=== PATIENT | male | born 1990 | race Caucasian/White ===

== ENCOUNTER → 2021-01-24 14:57 | Outpatient (CLI) | payer SELFPAY | PROVIDERS: Visit Provider Nurse Practitioner | DX: Z20.822 Contact with and (suspected) exposure to COVID-19 (principal); U07.1 COVID-19 | CPT/HCPCS: C9803; U0003; U0005 ==

== ENCOUNTER 2022-01-19 18:23 | Emergency (ER) | payer BC, SELFPAY ==
[2022-01-19 18:40] VITALS: BP 151/87; PULSE 62; RESP 17; TEMP 37.1; O2SAT 99; BMI 32.9
[2022-01-19 19:13] VITALS: BP 151/87; PULSE 62; RESP 17; TEMP 37.1; O2SAT 99
--- NOTE | 2022-01-19 19:33 | EXP.UTC ---
Discharge Plan Disposition Patient Disposition: Home, Self-Care Condition: Good Prescriptions Prescriptions: New ondansetron 4 mg Tablet,Disintegrating 4 mg PO Q8H PRN (Reason: Nausea) Qty: 20 0RF Referrals Follow up/Referrals: Provider,Referral, MD [Primary Care Provider] - See instructions Activity Restrictions/Add. Instructions Additional Instructions/Restrictions: *Monitor Temp, Over the counter Motrin or Tylenol as directed/as needed Tylenol every 4 hours and Motrin every 6 hours (as long as your family doctor has told you that you can take it) for fever or pain. and straight to ER if unable to lower temp less than 101.0 after medication given *Warm salt water gargles may help to soothe the throat *Throat Lozenges? *Warm fluids like tea with honey may help to soothe the throat? *Sleep elevated *Humidifier/Vaporizer Follow up IMMEDIATELY for new or worsening symptoms or no Noticeable improvement over the next 48-72 hours. 911 for difficulty breathing or swallowing You were tested for today for COVID19 your test result should be back in the next 24-48 hours, you may check your results on the [facility] My Health Portal Make sure to take your Vitamins Vit. C Vit D and Zinc if you can take them Clinical Impressions Clinical Impression: Viral syndrome, Exposure to COVID-19 virus Stand Alone Forms Stand Alone Forms: Work/School Release Instructions Patient Instructions: Coronavirus Disease 2019, Preventing the Spread of Coronavirus Discharge Instructions, DI for Viral Syndrome Discharge ED Provider: Mary Storey [facility] [place] General Stated complaint: stomach ache, cough, body aches, covid test Mode of Arrival: Ambulatory Source of Information: Patient Limitations: No Limitations Time Seen by Provider: 01/19/22 19:33 Description of Symptoms (Recalled from Triage Doc. by RN): PATIENT C/O RUNNY NOSE, BODY ACHES, FATIGUE, NAUSEA, AND LOSS OF TASTE/SMELL. REQUESTING COVID TEST HEENT Symptoms (Recalled from RN notes): Yes Resp Symptoms (Recalled from RN notes): No Skin Symptoms (Recalled from RN notes): No MS Symptoms (Recalled from RN notes): No Functional Status (Recalled from RN notes): WNL History of Present Illness Provider Complaint: Patient states that he was recently around his brother that has tested positive for COVID States that he has been having Nausea, upset stomach, runny nose body aches and loss of taste and smell so he came in to get tested for COVID Related Data Previous Rx's Medication Instructions Recorded ondansetron 4 mg disintegrating 4 mg PO Q8H PRN Nausea #20 tabs 01/19/22 tablet Allergies Allergy/AdvReac Type Severity Reaction Status Date / Time No Known Allergies Allergy Verified 01/19/22 18:54 Worker's Comp Is this a Worker's Comp case?: No PFSH [facility] Medical History (Updated 01/19/22 @ 19:38 by Mary Storey APRN) Hypertension Surgical History (Updated 01/19/22 @ 18:53 by Marina Carreon, JANE) History of oral surgery Social History (Updated 01/19/22 @ 18:54 by Marina Carreon, RN) Smoking Status: Current every day smoker alcohol intake: never current occupational status: other Travel in the last 8 weeks: None ROS Obtained: Yes All systems reviewed & no additional complaints except as documented and Yes Systems reviewed as appropriate & no additional complaints except as documented Constitutional Constitutional: Reports system reviewed and no additional complaints, except as documented, Reports as per HPI, Reports body ache and Reports chills ENT Ears, Nose, Mouth, and Throat: Reports system reviewed and no additional complaints, except as documented, Reports as per HPI, Reports nasal congestion, Reports nasal discharge and Reports other (loss of taste and smell) Cardiovascular Cardiovascular: Reports system reviewed and no additional complaints, except as documented and Reports as per HPI Respiratory Respiratory: Reports
== END 2022-01-19 19:50 | disposition home or self-care (01) ==
PROVIDERS: Emergency Provider Nurse Practitioner
DX: B34.9 Viral infection, unspecified (principal); R10.9 Unspecified abdominal pain; R05.9 Cough, unspecified; M79.10 Myalgia, unspecified site; R09.81 Nasal congestion; R53.83 Other fatigue; R11.0 Nausea; R43.8 Other disturbances of smell and taste; F17.210 Nicotine dependence, cigarettes, uncomplicated; Z20.822 Contact with and (suspected) exposure to COVID-19
CPT/HCPCS: 99212; C9803; G0463; U0003; U0005

== ENCOUNTER → 2022-05-19 14:43 | Outpatient (CLI) | payer BC, SELFPAY ==
--- NOTE | 2022-05-19 14:43 | MR_ITS ---
FINAL REPORT TECHNIQUE: Multiplanar and multisequence imaging of the shoulder was obtained without contrast. CLINICAL HISTORY: shoulder pain FINDINGS: Bones/Joint: Bone marrow signal intensity is normal. There is no fracture, edema, or pathologic marrow replacement. The AC joint is intact. Rotator Cuff: There is no full thickness rotator cuff tear. There is no fatty atrophy of the rotator cuff musculature. Labrum: The biceps labral complex is intact. There is a tear of the posterior inferior labrum with a very small posterior paralabral cyst. The remainder of the labrum is intact. The glenohumeral ligament is intact. Other: The more distal biceps tendon is located within the bicipital groove. There is no joint effusion. Remaining soft tissues are within normal limits. IMPRESSION: Posterior inferior labral tear with a very small cyst. Reviewed, Interpreted and Dictated by Kayy Armas MD Transcribed by Lizzette Workman Authenticated and . [facility]
== END ==
LOC: RAD 14:43
PROVIDERS: PCP Nurse Practitioner Family; Visit Provider Orthopaedic Surgery
DX: M25.512 Pain in left shoulder (principal); M75.102 Unspecified rotator cuff tear or rupture of left shoulder, not specified as traumatic
CPT/HCPCS: 73221

== ENCOUNTER → 2022-12-03 07:18 | Outpatient (CLI) | payer BC, SELFPAY | PROVIDERS: PCP Nurse Practitioner Family; Visit Provider Nurse Practitioner Family | DX: R55 Syncope and collapse (principal); R42 Dizziness and giddiness; R00.1 Bradycardia, unspecified | CPT/HCPCS: 93270 ==

== ENCOUNTER → 2022-12-10 08:26 | Outpatient (CLI) | payer BC, SELFPAY ==
--- NOTE | 2022-12-10 08:28 | CA_ITS ---
FINAL REPORT TECHNIQUE: Color Doppler, duplex Doppler and valdes scale sonography of the bilateral neck vasculature was performed. Velocities were measured in the carotid arteries. Stenosis evaluation based on velocity criteria. CLINICAL HISTORY: dizziness, syncope COMPARISON: None FINDINGS: The peak systolic velocity of the right common carotid artery is 160 cm/sec and internal carotid artery 120 cm/sec. The diastolic velocity in the internal carotid artery is 40 cm/sec. The ICA/CCA ratio is 0.8. Visually, no significant plaque is seen. These findings are consistent with less than 50% stenosis. The external carotid artery is patent. The right vertebral artery is patent with antegrade flow. The peak systolic velocity of the left common carotid artery is 143 cm/sec and internal carotid artery 125 cm/sec. The diastolic velocity in the internal carotid artery is 40 cm/sec. The ICA/CCA ratio is 0.9. Visually, no significant plaque is seen. These findings are consistent with less than 50% stenosis. The external carotid artery is patent. The left vertebral artery is patent with antegrade flow. IMPRESSION: No evidence of significant carotid stenosis. Bilateral patent vertebral arteries. If indicated, CTA or MRA could further evaluate. Reviewed, Interpreted and Dictated by Tray Abdul III, MD Transcribed by Denise Colón Authenticated and . [facility]
--- NOTE | 2022-12-10 08:28 | CA_ITS ---
APPROVED REPORT EXAM: Comprehensive 2D, Doppler, and color-flow Echocardiogram Warp Spooler: Shama Berrios RVT Ht: 6 ft 1 in Wt: 243lbs BSA: 2.34 BP: 134/77 mmHg Indications: HTN,BRADYCARDIA,SYNCOPE,HTN 2D Dimensions LVOT 2.31 cm (M/F) 1.5-2.5 LA Volume 48.10 mL LA Volume Index 20.56 mL/m2 (M/F) 16-34 M-Mode Dimensions RVDd 2.81 cm (0.9-2.6) LA Diam 4.06 cm (1.9-4.0) LVDd 5.02 cm (3.5-5.7) Ao Diam 2.89 cm (2.0-3.7) LVDs 3.50 cm (3.5-5.7) IVSd 0.84 cm (0.6-1.1) PWd 0.68 cm (0.6-1.1) EF (Teich) 57.30% FS 30.30% EDV (Teich) 119.30 mL TAPSE 2.90 (<1.7) ESV (Teich) 50.90 mL LV Diastology E Decel Time 240.00 (160-240 msec) E/A Ratio 1.0 MED E' 10.60 (< 7 cm/sec) E'/MED E' Ratio 5.58 (>14) LAT E' 9.20 (<10 cm/sec) E/LAT E' Ratio 6.42 (>14) Aortic Valve AO Peak GR. 4.40 mmHg Mitral Valve MV E Max Max. 59.00 (40-130 cm/s) MV A Velocity 57.00 (40-130 cm/s) E/A Ratio 1.03 MV Decel. Time 240.00 (160-240 ms) MV PHT 70.00 ms Pulmonary Valve PV Peak Velocity 95.00 (50-150 cm/s) Tricuspid Valve TR P. Velocity 108.00 cm/s RAP Estimate 10.00 mmHg RVSP 14.70 mmHg Left Ventricle The left ventricle is normal size. The left ventricular systolic function is normal. The left ventricular ejection fraction is within the normal range. There is normal left ventricular wall thickness. There is normal LV segmental wall motion. The left ventricular diastolic function is normal. LVEF is 60%. Right Ventricle Right ventricle is moderately dilated. The right ventricular systolic function is normal. TAPSE 2.1 cm. Atria The left atrium size is normal. The right atrium size mildly dilated. There is no Doppler evidence of interatrial shunt. Aortic Valve The aortic valve opens well. There is no aortic valvular stenosis. Trace aortic regurgitation. Mitral Valve The mitral valve is normal in structure. No evidence of mitral valve stenosis. Trace mitral regurgitation. Tricuspid Valve The tricuspid valve leaflets are thin and pliable. Trace tricuspid regurgitation. RVSP is 10-15 mmHg. Pulmonic Valve The pulmonary valve is grossly normal in structure. Trace pulmonic regurgitation. Great Vessels The aortic root is normal in size. IVC is normal in size and collapses >50% with inspiration. Pericardium There is no pericardial effusion. Other Information Study Quality: Adequate Conclusion Normal biventricular systolic function. Moderately dilated RV. No significant valvular disease. Electronically signed by : Annabella Downs, 12/11/2022 16:01:58
--- NOTE | 2022-12-10 10:35 | CA_ITS ---
APPROVED REPORT Exam: Exercise Treadmill Technologist: Josiane Lopez, Ht: 6 ft 0 in Wt: 243 lbs BSA: 2.31 m2 HR: 63 bpm BP: 157/91 mmHg Rhythm: NSR Stress Test Details Test: Dusty HR Resting HR: 65 bpm Max Heart Rate (APMHR): 189 bpm Max HR Achieved: 184 bpm Target HR (85% APMHR): 161 bpm % of APMHR: 97 Recovery HR: 99 bpm HR response to stress: Normal HR response to stress BP Resting BP: 163.0/93.0 mmHg Max BP: 212.0/84.0 mmHg Recovery BP: 143.0/81.0 mmHg BP response to stress: Abnormal hypertensive response to stress. ECG Resting ECG: NSR, early repolarization pattern Stress EC mm upsloping ST depression Arrhythmia: None Recovery ECG: Return to baseline within 3 minutes of recovery Recovery Arrhythmia: None Clinical Exercise duration: 10:56 min Highest Stage Achieved: IV Exercise capacity: 12.8 METs Overall Exercise Capacity for Age: Good Stress ECG Conclusion The patient was able to exercise for a total of 10:56 on Dusty Protocol. He achieved 12.8 METS. He has good exercise capacity compared to age and sex matched peers. He has normal HR, but exaggerated BP, response to exercise. Max HR: 180 % of PM: 95% Max BP: 212/84 METs: 12.8 Test stopped due to: SOA, Fatigue Symptoms: No CP Arrhythmias/Ectopy: None ST-T Changes: [address] depression Conclusion: Good exercise capacity. Exaggerated BP response to exercise. ECG stress test suggestive of possible ischemia. GXT only (no imaging) Test Summary REST . . . . . . . Sitting REST . . . . . . . Standing REST 03:57 0.0 0.0 65 . 163/ 93 . . Stage 1 01:00 10.0 1.7 92 . . . . Stage 1 02:00 10.0 1.7 96 . . . . Stage 1 03:00 10.0 1.7 103 . 178/ 90 . . Stage 2 01:00 12.0 2.5 112 . . . . Stage 2 02:00 12.0 2.5 119 . . . . Stage 2 03:00 12.0 2.5 124 . 208/ 90 . . Stage 3 01:00 14.0 3.4 133 . . . . Stage 3 02:00 14.0 3.4 144 . . . . Stage 3 03:00 14.0 3.4 153 . 212/ 84 . . Stage 4 01:00 16.0 4.2 181 . . . . Stage 4 01:56 16.0 4.2 180 . . . Stop exercise at 10:56 RECOVERY 01:00 0.0 0.0 136 . . . . RECOVERY 02:00 0.0 0.0 107 . . . . RECOVERY 03:00 0.0 0.0 92 . 185/ 87 . . RECOVERY 04:00 0.0 0.0 93 . 185/ 87 . . RECOVERY 05:00 0.0 0.0 96 . 154/ 83 . . RECOVERY 05:24 0.0 0.0 92 . 143/ 81 . . Electronically signed by : Annabella Downs, 12/13/2022 19:24:20
== END ==
LOC: RT 08:26
PROVIDERS: PCP Nurse Practitioner Family; Visit Provider Nurse Practitioner Family
DX: R00.1 Bradycardia, unspecified (principal); R42 Dizziness and giddiness; R55 Syncope and collapse; R09.89 Other specified symptoms and signs involving the circulatory and respiratory systems
CPT/HCPCS: 93017; 93306; 93880

== ENCOUNTER 2023-01-21 08:36 | Outpatient (CLI) | payer BC, SELFPAY ==
[2023-01-21] VITALS (8 sets, daily range): BP systolic 123–159; BP diastolic 55–97; PULSE 51–76; RESP 16–18; TEMP 36.3–36.7; O2SAT 95–100; BMI 32.1
[2023-01-21 09:39] LABS: Basophils # 0.1 K/mm3 (0-0.2); Basophils % 0.7 % (0.1-2.0); Eosinophils # 0.3 K/mm3 (0.0-0.4); Eosinophils % 2.9 % (0.1-12.0); Hematocrit 54.2 % (42.0-52.0); Hemoglobin 17.3 g/dL (14.1-18.0); Lymphocytes # 1.9 K/mm3 (0.7-4.5); Lymphocytes % 21.3 % (10-50); Mean Corpuscular HGB Conc 31.9 g/dL (31.8-35.4); Mean Corpuscular Hemoglobin 30.3 pg (27.0-31.2); Mean Corpuscular Volume 95.1 fl (80-94); Mean Platelet Volume 7.9 fl (7.4-10.4); Monocytes # 0.4 K/mm3 (0.1-1.0); Monocytes % 4.8 % (1.7-9.3); Neutrophils # 6.3 K/mm3 (1.8-7.8); Neutrophils % 70.3 % (37.0-80.0); Platelet Count 227 K/mm3 (142-424); Red Cell Distribution Width 13.3 % (11.5-17.5); White Blood Count 8.9 K/mm3 (4.8-10.8)
[2023-01-21 09:56] LABS: Anion Gap 12.7 mEq/L (5-15); Blood Urea Nitrogen 14 mg/dl (9-20); Calcium 9.6 mg/dl (8.4-10.2); Carbon Dioxide 29 mmol/L (22.0-30.0); Chloride 105 mmol/L (98-107); Creatinine Clearance Estimated 161 mL/min (50-200); Estimated Glomerular Filt Rate 87 ml/min (>60); GFR (African American) 105 ML/MIN (>60); Glucose 98 mg/dl (74-100); Potassium 4.7 mmoL/L (3.5-5.1); Sodium 142 mmol/L (136-145)
--- NOTE | 2023-01-21 10:47 | PC.NURSE ---
1045- pt arrived to post op at this time. pt stable and vss. will continue to monitor for one hour s/p cta.
== END 2023-01-21 11:32 | disposition home or self-care (01) ==
LOC: RAD 08:36
PROVIDERS: PCP Nurse Practitioner Family; Visit Provider Nurse Practitioner
DX: R42 Dizziness and giddiness (principal); R55 Syncope and collapse; R94.39 Abnormal result of other cardiovascular function study; Z82.49 Family history of ischemic heart disease and other diseases of the circulatory system
CPT/HCPCS: 75574; 80048; 85025; Q9967

== ENCOUNTER 2023-05-28 14:55 | Emergency (ER) | payer BC, SELFPAY ==
[2023-05-28 15:10] VITALS: BP 131/84; PULSE 101; RESP 18; TEMP 37.6; O2SAT 98; BMI 32.4
--- NOTE | 2023-05-28 15:25 | EXP.UTC ---
Discharge Plan Disposition Patient Disposition: Home, Self-Care Condition: Good Prescriptions Prescriptions: New ondansetron 8 mg Tablet,Disintegrating 8 mg PO TID PRN (Reason: Nausea) Qty: 30 0RF Referrals Follow up/Referrals: Milad Obrien APRN [Primary Care Provider] - See instructions Clinical Impressions Clinical Impression: Influenza B Stand Alone Forms Stand Alone Forms: Work/School Release Instructions Patient Instructions: DI for Influenza -- Adult Discharge ED Provider: Marley Adler [facility] [place] General Stated complaint: congestion, vomiting diahria ba flu exposure Mode of Arrival: Ambulatory Source of Information: Patient Limitations: No Limitations Time Seen by Provider: 05/28/23 15:25 Description of Symptoms (Recalled from Triage Doc. by RN): PATIENT C/O BODY ACHES, HEADACHE, NO TASTE/SMELL, RUNNY NOSE, AND VOMITING HEENT Symptoms (Recalled from RN notes): Yes Resp Symptoms (Recalled from RN notes): No Skin Symptoms (Recalled from RN notes): No MS Symptoms (Recalled from RN notes): No Functional Status (Recalled from RN notes): WNL History of Present Illness Provider Complaint: Fever, body aches, chills, vomiting X 1 day. has flu B. Onset (ago): day(s) (1) Relieving factors: none Exacerbating factors: none Associated symptoms: denies other symptoms Treatments prior to arrival: none Related Data Previous Rx's Medication Instructions Recorded ondansetron 8 mg disintegrating 8 mg PO TID PRN Nausea #30 tabs 05/28/23 tablet Allergies Allergy/AdvReac Type Severity Reaction Status Date / Time No Known Allergies Allergy Verified 01/21/23 09:19 Worker's Comp Is this a Worker's Comp case?: No [facility] Disclaimer: The information contained in this section may have been updated after the patient was seen, as this information can be updated by other users. Medical History (Updated 05/28/23 @ 15:31 by PEYTON Elena) Abnormal stress test Hypertension Surgical History History of oral surgery Family History Family history of myocardial infarction Social History (Updated 01/21/23 @ 09:18 by Carmen Slater RN) Smoking Status: Current every day smoker alcohol intake: never current occupational status: employed Travel in the last 8 weeks: None ROS Obtained: Yes All systems reviewed & no additional complaints except as documented and Yes Systems reviewed as appropriate & no additional complaints except as documented Constitutional Constitutional: Reports system reviewed and no additional complaints, except as documented, Reports as per HPI, Reports body ache, Reports chills and Reports fever(s) ENT Ears, Nose, Mouth, and Throat: Reports system reviewed and no additional complaints, except as documented, Reports as per HPI, Reports nasal congestion, Reports nasal discharge and Reports other (loss of taste and smell) Cardiovascular Cardiovascular: Reports system reviewed and no additional complaints, except as documented and Reports as per HPI Respiratory Respiratory: Reports system reviewed and no additional complaints, except as documented, Reports as per HPI and Reports cough Gastrointestinal Gastrointestingal: Reports system reviewed and no additional complaints, except as documented, as per HPI, nausea and vomiting Physical Exam General General appearance: alert and in no apparent distress Head Head exam: atraumatic, normocephalic and normal inspection Eye Eye exam: Present normal appearance, PERRL and EOMI ENT ENT exam: Present normal exam, normal oropharynx, mucous membranes moist, TM's normal bilaterally and normal external ear exam Neck Neck exam: Present normal inspection, full ROM and trachea midline; Absent meningismus or lymphadenopathy Chest Chest inspection: Present normal inspection and symmetric chest wall rise; Absent tenderness Respiratory Respiratory exam: Present normal lung sounds bilaterally; Absent respiratory distress Cardiovascular Cardiovascular exam: Present regular rate and normal rhythm; Absent JVD Abdominal Exam Abdominal exam: Present soft and normal bowel sounds; Absent distention, tenderness or guarding Extremities Exam Extremities exam: Present normal inspection, full ROM and normal capillary refill; Absent calf tenderness Back Exam Back exam: Present normal inspection; Absent tenderness Neurological Exam Neurological exam: Present alert and oriented X3 Psychiatric Psychiatric exam: Present normal affect and normal mood Skin Skin exam: Present warm, dry, intact and normal color Lymphatic Lymphatic Findings: no adenopathy Medical Decision Making Clemente Inquiry Pt receiving controlled substance: No Vital Signs: 05/28/23 15:10 Temperature 99.6 F Temperature Source Oral Pulse Rate [Left Brachial] 101 H Respiratory Rate 18 Blood Pressure [Left Arm] 131/84 Blood Pressure Mean [Left Arm] 99 Blood Pressure Source [Left Arm] Automatic Cuff Blood Pressure Position [Left Arm] Sitting 02 Sat by Pulse Oximetry 98 Oxygen Delivery Method Room Air Lab Data Lab results reviewed: Yes I reviewed the patient's lab results. Orders (Tests/Meds): ORDERS Category Date Time Status Covid-19 Nasal PCR ([facility]) Routine Lab 05/28/23 15:18 Ordered
[2023-05-28 15:27] LABS: UTC Influenza A Antigen Negative (Negative)
[2023-05-28 15:28] LABS: UTC Influenza B Antigen Positive (Negative)
[2023-05-28 15:33] VITALS: BP 131/84; PULSE 101; RESP 18; TEMP 37.6; O2SAT 98
== END 2023-05-28 15:36 | disposition home or self-care (01) ==
PROVIDERS: Emergency Provider Physician Assistant; PCP Nurse Practitioner Family
DX: J10.1 Influenza due to other identified influenza virus with other respiratory manifestations (principal); R11.2 Nausea with vomiting, unspecified; R50.9 Fever, unspecified; R09.81 Nasal congestion; R05.9 Cough, unspecified; F17.210 Nicotine dependence, cigarettes, uncomplicated
CPT/HCPCS: 87635; 87804; 99212; 99214; G0463

== ENCOUNTER 2023-11-15 22:34 | Observation (INO) | payer BC, SELFPAY ==
[2023-11-15 22:36] VITALS: BP 177/107; PULSE 74; RESP 20; TEMP 36.8; O2SAT 99; BMI 34.2
--- NOTE | 2023-11-15 22:38 | ED_ITS ---
<Statement entered by Jordon Ragsdale MD - 11/15/23 23:15> I was consulted by the PRANEETH, and we discussed the complexity of the problems being addressed. I approved the treatment and management plan for this patient's care in the emergency department, thus performing a substantive portion of the medical decision making. Jordon Ragsdale MD Discharge Plan Disposition Patient Disposition: Admitted Condition: Good Chief Complaint: Syncope Prescriptions Prescriptions: No Action ondansetron 8 mg Tablet,Disintegrating 8 mg PO TID PRN (Reason: Nausea) Qty: 30 0RF Referrals Follow up/Referrals: Milad Obrien APRN [Primary Care Provider] - See instructions Clinical Impressions Clinical Impression: Syncope Instructions Patient Instructions: DI for Syncope in Adults (Fainting) Discharge ED Provider: Jordon Ragsdale General Adult HPI <PEYTON Joseph - Last Filed: 11/15/23 22:55> General Chief complaint: Syncope Stated complaint: Possible seizure at home Time Seen by Provider: 11/15/23 22:38 History of Present Illness HPI narrative: Patient presents for evaluation of syncope and collapse. Patient was sitting watching a movie with his and his mother and he had an unheralded syncopal event while seated in a chair. There were no provoking factors. He was unconscious for approximately what seemed like 2 minutes according to his mother. There was no tonic-clonic activity jerking or twitching. He came to spontaneously. Patient states that he initially had visual changes like you had low blood sugar . Patient had no postictal period and came to spontaneously. He has not been recently ill. He currently denies chest pain fever chills hemoptysis hematochezia melena nausea vomiting diarrhea headache neck pain. Patient has had a previous episode approximately 6 months ago that was investigated from a cardiac standpoint and no cause was found. Related Data Previous Rx's Medication Instructions Recorded ondansetron 8 mg disintegrating 8 mg PO TID PRN Nausea #30 tabs 05/28/23 tablet Allergies Allergy/AdvReac Type Severity Reaction Status Date / Time No Known Allergies Allergy Verified 01/21/23 09:19 PFS <PEYTON Joseph - Last Filed: 11/15/23 22:55> [facility] Disclaimer: The information contained in this section may have been updated after the patient was seen, as this information can be updated by other users. Medical History (Updated 11/16/23 @ 01:23 by Basil Elaine MD) Abnormal stress test Hypertension Surgical History History of oral surgery Family History Other Family history of myocardial infarction Social History (Updated 01/21/23 @ 09:18 by Carmen Slater, JANE) Smoking Status: Current every day smoker alcohol intake: never current occupational status: employed Travel in the last 8 weeks: None <PEYTON Joseph - Last Filed: 11/15/23 22:55> ROS Obtained: Yes Systems reviewed as appropriate & no additional complaints except as documented Physical Exam <PEYTON Joseph - Last Filed: 11/15/23 22:55> General General appearance: alert and in no apparent distress Head Head exam: atraumatic and normal inspection Eye Eye exam: Present normal appearance, PERRL and EOMI ENT ENT exam: Present normal exam, normal oropharynx and mucous membranes moist Neck Neck exam: Present normal inspection, full ROM, trachea midline, tenderness and other (No carotid bruits) Chest Chest inspection: Present normal inspection and symmetric chest wall rise Respiratory Respiratory exam: Present normal lung sounds bilaterally; Absent respiratory distress or wheezes Cardiovascular Cardiovascular exam: Present regular rate, normal rhythm, normal heart sounds, +S1 and +S2 Abdominal Exam Abdominal exam: Present soft and normal bowel sounds; Absent tenderness, guarding or rebound Extremities Exam Extremities exam: Present normal inspection and full ROM Back Exam Back exam: Present normal inspection and full ROM; Absent tenderness Neurological Exam Neurological exam: Present alert, oriented X3, CN II-XII intact, normal gait and reflexes normal; Absent motor sensory deficit Psychiatric Psychiatric exam: Present normal affect and normal mood Skin Skin exam: Present warm, dry and normal color Medical Decision Making <PEYTON Joseph - Last Filed: 11/15/23 22:55> Medical Records Medical records reviewed: Yes I reviewed the patient's medical records. [place] Inquiry Pt receiving controlled substance: No Vital Signs: 11/15/23 22:36 11/15/23 22:39 11/15/23 23:00 Temperature 98.2 F Temperature Source Oral Pulse Rate 89 63 Pulse Rate [Right Radial] 74 Respiratory Rate 20 16 18 Blood Pressure 122/76 Blood Pressure [Right Arm] 177/107 H Blood Pressure Mean [Right Arm] 130 Blood Pressure Source [Right Arm] Automatic Cuff Blood Pressure Position [Right Arm] Supine 02 Sat by Pulse Oximetry 99 97 96 Oxygen Delivery Method Room Air Room Air Room Air Lab Data Lab results reviewed: Yes I reviewed the patient's lab results. Lab Results 11/15/23 22:47: WBC 9.4, RBC 4.91, Hgb 15.9, Hct 47.4, MCV 96.7 H, MCH 32.5 H, MCHC 33.6, RDW 13.8, Plt Count 229, MPV 8.2, Neut % (Auto) 76.4, Lymph % (Auto) 15.5, [place] % (Auto) 4.6, Eos % (Auto) 2.8, Baso % (Auto) 0.7, Neut # (Auto) 7.2, Lymph # (Auto) 1.5, [place] # (Auto) 0.4, Eos # (Auto) 0.3, Baso # (Auto) 0.1, PT 10.8, INR 0.96, Sodium 141, Potassium 3.9, Chloride 106, Carbon Dioxide 31 H, Anion Gap 7.9, BUN 13, Creatinine 1.20, Estimated Creat Clear 147, Estimated GFR 70, Est GFR ( Amer) 85, Glucose 98, Calcium 9.7, Total Bilirubin 0.7, AST 24, ALT 25, Alkaline Phosphatase 102, Troponin I < 0.01, Total Protein 7.6, Albumin 4.5, Globulin 3.1, Albumin/Globulin Ratio 1.5, TSH 0.60 11/15/23 22:47 11/15/23 22:47 Orders (Tests/Meds): ED MEDICATIONS Discontinued Medications Generic Name Dose Route Start Last Admin Trade Name Freq PRN Reason Stop Dose Admin Lactated Ringer's 1,000 mls @ 999 mls/hr 11/15/23 22:44 11/15/23 23:01 Lactated Ringer's 1000 Ml Bag IV 11/15/23 23:44 999 mls/hr .Q1H1M ONE Administration Iopamidol 175 ml 11/15/23 23:32 11/15/23 23:33 Iopamidol-370 (76%);100ml Bottle IV 11/15/23 23:33 175 ml ONCE ONE Administration Sodium Chloride 50 ml 11/15/23 23:32 11/15/23 23:33 0.9 % Sodium Chloride 50 Ml Vial IV 11/15/23 23:33 50 ml ONCE ONE Administration Sodium Chloride 10 ml 11/15/23 23:32 11/15/23 23:33 Sodium Chloride 0.9% 10ml Syr (Rad Only) IV 11/15/23 23:33 10 ml ONCE ONE Administration ORDERS Category Date Time Status CT abdomen pelvis w con Stat Cat Scan 11/15/23 22:[address] angio head Stat Cat Scan 11/15/23 22:[address] angio neck Stat Cat Scan 11/15/23 22:[address] head/brain wo con Stat Cat Scan 11/15/23 22:45 Completed CBC w/Auto Diff [Complete Blood Count Auto Diff] Stat Lab 11/15/23 22:47 Completed CMP [Comprehensive Metabolic Panel] Stat Lab 11/15/23 22:47 Completed INR [Prothrombin Time INR] Stat Lab 11/15/23 22:47 Completed TSH [Thyroid Stimulating Hormone] Stat Lab 11/15/23 22:47 Completed Trop I [Troponin I] Stat Lab 11/15/23 22:47 Completed Troponin I Q3H Lab 11/16/23 02:00 Ordered Troponin I Q3H Lab 11/16/23 05:00 Ordered Medical Decision Narrative: In summary patient is a 33-year-old male who presents to the emergency department for evaluation of syncope and collapse. Patient is hemodynamically stable upon arrival, febrile. Sickle exam currently is unremarkable and nonfocal with a Glascow coma score 15 and no focal neurologic deficits. Differential diagnosis includes arrhythmia, vasovagal syndrome although it seems unlikely, stroke etc. Initial workup will be conducted with hematologic labs CT scan of the head CTA of the chest CT a of the head and neck. Initial interventions include crystalloid bolus. Initial workup initiated and pending at the time of handoff to Dr. Elaine at 2300 hrs. <Jordon Ragsdale MD - Last Filed: 11/15/23 23:07> Vital Signs: 11/15/23 22:36 11/15/23 22:39 11/15/23 23:00 Temperature 98.2 F Temperature Source Oral Pulse Rate 89 63 Pulse Rate [Right Radial] 74 Respiratory Rate 20 16 18 Blood Pressure 122/76 Blood Pressure [Right Arm] 177/107 H Blood Pressure Mean [Right Arm] 130 Blood Pressure Source [Right Arm] Automatic Cuff Blood Pressure Position [Right Arm] Supine 02 Sat by Pulse Oximetry 99 97 96 Oxygen Delivery Method Room Air Room Air Room Air Lab Data Lab Results 11/15/23 22:47: WBC 9.4, RBC 4.91, Hgb 15.9, Hct 47.4, MCV 96.7 H, MCH 32.5 H, MCHC 33.6, RDW 13.8, Plt Count 229, MPV 8.2, Neut % (Auto) 76.4, Lymph % (Auto) 15.5, [place] % (Auto) 4.6, Eos % (Auto) 2.8, Baso % (Auto) 0.7, Neut # (Auto) 7.2, Lymph # (Auto) 1.5, [place] # (Auto) 0.4, Eos # (Auto) 0.3, Baso # (Auto) 0.1, PT 10.8, INR 0.96, Sodium 141, Potassium 3.9, Chloride 106, Carbon Dioxide 31 H, Anion Gap 7.9, BUN 13, Creatinine 1.20, Estimated Creat Clear 147, Estimated GFR 70, Est GFR ( Amer) 85, Glucose 98, Calcium 9.7, Total Bilirubin 0.7, AST 24, ALT 25, Alkaline Phosphatase 102, Troponin I < 0.01, Total Protein 7.6, Albumin 4.5, Globulin 3.1, Albumin/Globulin Ratio 1.5, TSH 0.60 Orders (Tests/Meds): ED MEDICATIONS Discontinued Medications Generic Name Dose Route Start Last Admin Trade Name Mayurq PRN Reason Stop Dose Admin Lactated Ringer's 1,000 mls @ 999 mls/hr 11/15/23 22:44 11/15/23 23:01 Lactated Ringer's 1000 Ml Bag IV 11/15/23 23:44 999 mls/hr .Q1H1M ONE Administration Iopamidol 175 ml 11/15/23 23:32 11/15/23 23:33 Iopamidol-370 (76%);100ml Bottle IV 11/15/23 23:33 175 ml ONCE ONE Administration Sodium Chloride 50 ml 11/15/23 23:32 11/15/23 23:33 0.9 % Sodium Chloride 50 Ml Vial IV 11/15/23 23:33 50 ml ONCE ONE Administration Sodium Chloride 10 ml 11/15/23 23:32 11/15/23 23:33 Sodium Chloride 0.9% 10ml Syr (Rad Only) IV 11/15/23 23:33 10 ml ONCE ONE Administration ORDERS Category Date Time Status CT abdomen pelvis w con Stat Cat Scan 11/15/23 22:[address] angio head Stat Cat Scan 11/15/23 22:[address] angio neck Stat Cat Scan 11/15/23 22:[address] head/brain wo con Stat Cat Scan 11/15/23 22:45 Completed CBC w/Auto Diff [Complete Blood Count Auto Diff] Stat Lab 11/15/23 22:47 Completed CMP [Comprehensive Metabolic Panel] Stat Lab 11/15/23 22:47 Completed INR [Prothrombin Time INR] Stat Lab 11/15/23 22:47 Completed TSH [Thyroid Stimulating Hormone] Stat Lab 11/15/23 22:47 Completed Trop I [Troponin I] Stat Lab 11/15/23 22:47 Completed Troponin I Q3H Lab 11/16/23 02:00 Ordered Troponin I Q3H Lab 11/16/23 05:00 Ordered ECG Data Tracing #1: Independently interpreted by me rate is 60, rhythm is regular, axis normal, no ST elevation in anatomical contiguous leads, QTc 373. No high degree AV block, no long QT. <Basil Elaine MD - Last Filed: 11/16/23 01:23> Vital Signs: 11/15/23 22:36 11/15/23 22:39 11/15/23 23:00 Temperature 98.2 F Temperature Source Oral Pulse Rate 89 63 Pulse Rate [Right Radial] 74 Respiratory Rate 20 16 18 Blood Pressure 122/76 Blood Pressure [Right Arm] 177/107 H Blood Pressure Mean [Right Arm] 130 Blood Pressure Source [Right Arm] Automatic Cuff Blood Pressure Position [Right Arm] Supine 02 Sat by Pulse Oximetry 99 97 96 Oxygen Delivery Method Room Air Room Air Room Air Lab Data Lab Results 11/15/23 22:47: WBC 9.4, RBC 4.91, Hgb 15.9, Hct 47.4, MCV 96.7 H, MCH 32.5 H, MCHC 33.6, RDW 13.8, Plt Count 229, MPV 8.2, Neut % (Auto) 76.4, Lymph % (Auto) 15.5, [place] % (Auto) 4.6, Eos % (Auto) 2.8, Baso % (Auto) 0.7, Neut # (Auto) 7.2, Lymph # (Auto) 1.5, [place] # (Auto) 0.4, Eos # (Auto) 0.3, Baso # (Auto) 0.1, PT 10.8, INR 0.96, Sodium 141, Potassium 3.9, Chloride 106, Carbon Dioxide 31 H, Anion Gap 7.9, BUN 13, Creatinine 1.20, Estimated Creat Clear 147, Estimated GFR 70, Est GFR ( Amer) 85, Glucose 98, Calcium 9.7, Total Bilirubin 0.7, AST 24, ALT 25, Alkaline Phosphatase 102, Troponin I < 0.01, Total Protein 7.6, Albumin 4.5, Globulin 3.1, Albumin/Globulin Ratio 1.5, TSH 0.60 Orders (Tests/Meds): ED MEDICATIONS Discontinued Medications Generic Name Dose Route Start Last Admin Trade Name Mayurq PRN Reason Stop Dose Admin Lactated Ringer's 1,000 mls @ 999 mls/hr 11/15/23 22:44 11/15/23 23:01 Lactated Ringer's 1000 Ml Bag IV 11/15/23 23:44 999 mls/hr .Q1H1M ONE Administration Iopamidol 175 ml 11/15/23 23:32 11/15/23 23:33 Iopamidol-370 (76%);100ml Bottle IV 11/15/23 23:33 175 ml ONCE ONE Administration Sodium Chloride 50 ml 11/15/23 23:32 11/15/23 23:33 0.9 % Sodium Chloride 50 Ml Vial IV 11/15/23 23:33 50 ml ONCE ONE Administration Sodium Chloride 10 ml 11/15/23 23:32 11/15/23 23:33 Sodium Chloride 0.9% 10ml Syr (Rad Only) IV 11/15/23 23:33 10 ml ONCE ONE Administration ORDERS Category Date Time Status CT abdomen pelvis w con Stat Cat Scan 11/15/23 22:[address] angio head Stat Cat Scan 11/15/23 22:[address] angio neck Stat Cat Scan 11/15/23 22:[address] head/brain wo con Stat Cat Scan 07/08/24 22:45 Completed CBC w/Auto Diff [Complete Blood Count Auto Diff] Stat Lab 11/15/23 22:47 Completed CMP [Comprehensive Metabolic Panel] Stat Lab 11/15/23 22:47 Completed INR [Prothrombin Time INR] Stat Lab 11/15/23 22:47 Completed TSH [Thyroid Stimulating Hormone] Stat Lab 11/15/23 22:47 Completed Trop I [Troponin I] Stat Lab 11/15/23 22:47 Completed Troponin I Q3H Lab 11/16/23 02:00 Ordered Troponin I Q3H Lab 11/16/23 05:00 Ordered Medical Decision Narrative: In summary patient is a 33-year-old male who presents to the emergency department for evaluation of syncope and collapse. Patient is hemodynamically stable upon arrival, febrile. Sickle exam currently is unremarkable and nonfocal with a Glascow coma score 15 and no focal neurologic deficits. Differential diagnosis includes arrhythmia, vasovagal syndrome although it seems unlikely, stroke etc. Initial workup will be conducted with hematologic labs CT scan of the head CTA of the chest CT a of the head and neck. Initial interventions include crystalloid bolus. Initial workup initiated and pending at the time of handoff to Dr. Elaine at 2300 hrs. Elaine: Upon assumption of care patient is stable and resting comfortably. He has not had any additional syncopal episodes in the ER. I agree with the initial workup performed by the primary providers. I reviewed labs which demonstrate no leukocytosis or anemia, PT/INR normal, initial troponin undetectably low at less than 0.01, CMP nonactionable. EKG personally interpreted demonstrates normal sinus rhythm, rate 60, normal axis, normal IL and QTc, no STEMI. No findings of WPW or B[place], no findings of hypertrophy. CT imaging was personally interpreted, I do not appreciate acute intracranial abnormality, no obvious vascular pathology within the head or neck. See radiology read for final interpretations. Patient continues to be stable. He requires admission at this time for unprovoked syncope. Patient is amenable to this plan. I discussed this with the hospitalist including this being patient's second presentation for similar symptoms. He was accepted for admission. Critical Care <PEYTON Joseph - Last Filed: 11/15/23 22:55> Critical Care Time Critical Care Time: No
[2023-11-15 22:39] VITALS: PULSE 89; RESP 16; O2SAT 97
--- NOTE | 2023-11-15 22:44 | CT_ITS ---
PROCEDURE INFORMATION: Exam: CTA Neck With Contrast Exam date and time: 11/15/2023 11:21 PM Age: 33 years old Clinical indication: Syncope and collapse TECHNIQUE: Imaging protocol: Computed tomographic angiography of the neck with contrast. Exam focused on the cervical segments of the vasculature. 3D rendering (Not supervised by radiologist): MIP and/or 3D reconstructed images were created by the technologist. Radiation optimization: All CT scans at this facility use at least one of these dose optimization techniques: automated exposure control; mA and/or kV adjustment per patient size (includes targeted exams where dose is matched to clinical indication); or iterative reconstruction. Contrast material: ISOVUE; Contrast volume: 100 ml; Contrast route: INTRAVENOUS (IV); COMPARISON: CT ANGIO NECK 11/15/2023 11:21 PM FINDINGS: Right common carotid artery: No stenosis. No dissection or occlusion. Right internal carotid artery: No stenosis of the extracranial segment. No dissection or occlusion. Right external carotid artery: No occlusion or stenosis of the origin. Left common carotid artery: No stenosis. No dissection or occlusion. Left internal carotid artery: No stenosis of the extracranial segment. No dissection or occlusion. Left external carotid artery: No occlusion or stenosis of the origin. Right vertebral artery: No stenosis. No dissection or occlusion. Left vertebral artery: No stenosis. No dissection or occlusion. Soft tissues: Normal. No significant soft tissue swelling. Bones/joints: No acute fracture. IMPRESSION: No stenosis or occlusion. REFERENCES: NASCET CRITERIA. The degree of stenosis in the cervical segment of the internal carotid artery is based on NASCET criteria. Normal is no stenosis. Mild is less than 50% stenosis. Moderate is 50-69% stenosis. Severe is 70% to 99% stenosis. Total occlusion is no detectable patent lumen.
--- NOTE | 2023-11-15 22:44 | CT_ITS ---
PROCEDURE INFORMATION: Exam: CTA Head With Contrast, Arteriography Exam date and time: 11/15/2023 11:21 PM Age: 33 years old Clinical indication: Syncope and collapse TECHNIQUE: Imaging protocol: Computed tomographic angiography of the head with contrast. Exam focused on the arteries. 3D rendering (Not supervised by radiologist): MIP and/or 3D reconstructed images were created by the technologist. Radiation optimization: All CT scans at this facility use at least one of these dose optimization techniques: automated exposure control; mA and/or kV adjustment per patient size (includes targeted exams where dose is matched to clinical indication); or iterative reconstruction. Contrast material: ISOVUE; Contrast volume: 100 ml; Contrast route: INTRAVENOUS (IV); COMPARISON: CT HEAD/BRAIN WO CON 11/15/2023 11:19 PM FINDINGS: ANTERIOR CIRCULATION: Right internal carotid artery: Intracranial segment is patent with no significant stenosis. No aneurysm. Right middle cerebral artery: No occlusion or significant stenosis. No aneurysm. Right anterior cerebral artery: No occlusion or significant stenosis. No aneurysm. Left internal carotid artery: Intracranial segment is patent with no significant stenosis. No aneurysm. Left middle cerebral artery: No occlusion or significant stenosis. No aneurysm. Left anterior cerebral artery: No occlusion or significant stenosis. No aneurysm. POSTERIOR CIRCULATION: Right vertebral artery: No occlusion or significant stenosis. No aneurysm. Left vertebral artery: No occlusion or significant stenosis. No aneurysm. Basilar artery: No occlusion or significant stenosis. No aneurysm. Right posterior cerebral artery: No occlusion or significant stenosis. No aneurysm. Left posterior cerebral artery: No occlusion or significant stenosis. No aneurysm. Brain: No definite mass, mass effect, or midline shift. Cerebral ventricles: No ventriculomegaly. Bones/joints: Unremarkable. No acute fracture. Soft tissues: Unremarkable. IMPRESSION: No large vessel stenosis or occlusion.
--- NOTE | 2023-11-15 22:45 | CT_ITS ---
PROCEDURE INFORMATION: Exam: CT Abdomen And Pelvis With Contrast Exam date and time: 11/15/2023 11:25 PM Age: 33 years old Clinical indication: Abdominal pain; Additional info: Syncope and collapse TECHNIQUE: Imaging protocol: Computed tomography of the abdomen and pelvis with contrast. Radiation optimization: All CT scans at this facility use at least one of these dose optimization techniques: automated exposure control; mA and/or kV adjustment per patient size (includes targeted exams where dose is matched to clinical indication); or iterative reconstruction. Contrast material: ISOVUE; Contrast volume: 75 ml; Contrast route: IV; COMPARISON: No relevant prior studies available. FINDINGS: Lungs: There are areas of subpleural reticulation throughout the visualized lungs which are nonspecific. Liver: Normal. Gallbladder and biliary ducts: No acute process. Pancreas: There is fatty replacement of the pancreas. Spleen: Normal. Adrenal glands: The adrenal glands appear normal. Kidneys and ureters: Excreted contrast in the urinary collecting systems from recent CTA studies limits evaluation for small renal calculi. Stomach and bowel: The stomach, small bowel, and colon are well-distended and show no evidence of wall thickening, masses, or obstruction. Appendix: No evidence of appendicitis. Intraperitoneal space: Unremarkable. Vasculature: The abdominal aorta and its major branches appear normal without evidence of aneurysm or stenosis. There are pelvic phleboliths. Lymph nodes: No lymphadenopathy. Urinary bladder: Unremarkable as visualized. Reproductive: No acute process. Bones/joints: The visualized osseous structures of the abdomen and pelvis appear normal for patient age. Soft tissues: There is a small fat containing umbilical hernia. IMPRESSION: No acute inflammatory or obstructive process is identified. Incidental findings are described within the findings section.
--- NOTE | 2023-11-15 22:45 | CT_ITS ---
PROCEDURE INFORMATION: Exam: CT Head Without Contrast Exam date and time: 11/15/2023 11:19 PM Age: 33 years old Clinical indication: Syncope and collapse TECHNIQUE: Imaging protocol: Computed tomography of the head without contrast. Radiation optimization: All CT scans at this facility use at least one of these dose optimization techniques: automated exposure control; mA and/or kV adjustment per patient size (includes targeted exams where dose is matched to clinical indication); or iterative reconstruction. COMPARISON: US CA CAROTID DUPLEX BI 12/10/2022 8:30 AM FINDINGS: Brain: Normal. No hemorrhage. Unremarkable white matter. No mass effect. Cerebral ventricles: No ventriculomegaly. Pituitary gland and sella: Negative Paranasal sinuses: Moderate mucosal thickening inferiorly in the bilateral maxillary sinuses. Moderate partial opacification ethmoid air cells. Mild frontal sinus mucosal thickening. Mastoid air cells: Visualized mastoid air cells are well aerated. Orbital cavities: Negative. Parotid and submandibular glands: Negative Bones: Unremarkable. No acute fracture. Soft tissues: Unremarkable. Vasculature: Negative. IMPRESSION: No evidence for intracranial hemorrhage, mass lesions or acute stroke.
--- NOTE | 2023-11-15 22:49 | ECG_ITS ---
APPROVED REPORT Exam: Resting ECG HR:60 bpm ECG Measurements Heart Rate 60 AXES DC 131 P 33 QRSd 110 QRS 62 QT 373 T 57 QTc 373 Conclusion SINUS RHYTHM POSSIBLE RIGHT VENTRICULAR CONDUCTION DELAY [RSR (QR) IN V1/V2] BORDERLINE ECG Electronically signed by : YVAN HE, 11/17/2023 09:28:07
[2023-11-15 22:58] LABS: Basophils # 0.1 K/mm3 (0-0.2); Basophils % 0.7 % (0.1-2.0); Eosinophils # 0.3 K/mm3 (0.0-0.4); Eosinophils % 2.8 % (0.1-12.0); Hematocrit 47.4 % (42.0-52.0); Hemoglobin 15.9 g/dL (14.1-18.0); Lymphocytes # 1.5 K/mm3 (0.7-4.5); Lymphocytes % 15.5 % (10-50); Mean Corpuscular HGB Conc 33.6 g/dL (31.8-35.4); Mean Corpuscular Hemoglobin 32.5 pg (27.0-31.2); Mean Corpuscular Volume 96.7 fl (80-94); Mean Platelet Volume 8.2 fl (7.4-10.4); Monocytes # 0.4 K/mm3 (0.1-1.0); Monocytes % 4.6 % (1.7-9.3); Neutrophils # 7.2 K/mm3 (1.8-7.8); Neutrophils % 76.4 % (37.0-80.0); Platelet Count 229 K/mm3 (142-424); Red Blood Count 4.91 M/mm3 (4.60-6.20); Red Cell Distribution Width 13.8 % (11.5-17.5); White Blood Count 9.4 K/mm3 (4.8-10.8)
[2023-11-15 23:00] VITALS: BP 122/76; PULSE 63; RESP 18; O2SAT 96
[2023-11-15] MEDS: LACTATED RINGERS 1000ML 1,000 ML 999 ML IV (23:01)
[2023-11-15 23:03] LABS: Chloride 106 mmol/L (98-107)
[2023-11-15 23:04] LABS: Potassium 3.9 mmoL/L (3.5-5.1); Sodium 141 mmol/L (136-145)
[2023-11-15 23:06] LABS: Alanine Aminotransferase 25 U/L (12-78); Alkaline Phosphatase 102 U/L (38-126); Aspartate Amino Transferase 24 U/L (17-59); Bilirubin,Total 0.7 mg/dl (0.2-1.3); Blood Urea Nitrogen 13 mg/dl (9-20); Creatinine Clearance Estimated 147 mL/min (50-200); Estimated Glomerular Filt Rate 70 ml/min (>60); GFR (African American) 85 ML/MIN (>60)
[2023-11-15 23:07] LABS: Albumin Level 4.5 g/dl (3.5-5.0); Albumin/Globulin Ratio 1.5 (1.1-1.8); Anion Gap 7.9 mEq/L (5-15); Calcium 9.7 mg/dl (8.4-10.2); Carbon Dioxide 31 mmol/L (22.0-30.0); Globulin 3.1 g/dL (1.3-3.2); Glucose 98 mg/dl (74-100); Total Protein,Serum 7.6 g/dl (6.3-8.2)
[2023-11-15 23:12] LABS: INR 0.96 (0.9-1.1); Prothrombin Time 10.8 seconds (10.1-12.5)
[2023-11-15 23:20] LABS: Troponin I < 0.01 ng/ml (0.00-0.034)
[2023-11-15 23:30] VITALS: BP 135/77; PULSE 66; RESP 18; O2SAT 97
[2023-11-15] MEDS: 0.9 % SODIUM CHLORIDE 50 ML VIAL IV (23:33)
[2023-11-15] MEDS: IOPAMIDOL-370 (76%);100ML BOTTLE 175 ML IV (23:33)
[2023-11-15] MEDS: SODIUM CHLORIDE 0.9% 10ML SYR (RAD ONLY) 10 ML IV (23:33)
[2023-11-16] VITALS (13 sets, daily range): BP systolic 105–148; BP diastolic 54–89; PULSE 46–67; RESP 14–24; TEMP 36.8–37; O2SAT 93–99; BMI 34.4; BMI 30.9
[2023-11-16 02:20] LABS: Troponin I < 0.01 ng/ml (0.00-0.034)
--- NOTE | 2023-11-16 02:25 | P.HP_ITS ---
History of Present Illness *Admission Date: 11/16/23 *Reason for visit:: Syncope *History of present illness: 33-year-old presents to the ER after second episode of syncope in the last 6 months. Was sitting in his chair, passed out for about 2 minutes, completely unresponsive. No bowel or bladder continence loss. Woke up spontaneously with no memory of the event. Prodrome prior to syncope approximately 5 seconds, no palpitations, felt vision narrow then went black. Similar to last episode. Has had prior cardiovascular evaluation syncope including a coronary CTA which was normal. Echo with Normal biventricular systolic function. Moderately dilated RV. No significant valvular disease. Reportedly had a Holter monitor however records are not available in our reporting system. Currently asymptomatic [facility] Disclaimer: The information contained in this section may have been updated after the patient was seen, as this information can be updated by other users. Medical History (Updated 11/16/23 @ 02:30 by Mable Devi MD) Abnormal stress test Hypertension Surgical History History of oral surgery Family History Other Family history of myocardial infarction Social History (Updated 01/21/23 @ 09:18 by Carmen Slater RN) Smoking Status: Current every day smoker alcohol intake: never current occupational status: employed Travel in the last 8 weeks: None Review of Systems Review of Systems Review of systems:: pertinent systems reviewed and negative unless documented below Meds Home Medications and Allergies Home Medications Medication Instructions Recorded Confirmed Type ondansetron 8 mg disintegrating 8 mg PO TID PRN Nausea #30 tabs 05/28/23 Rx tablet New Prescriptions to Start Prescriptions: Allergies Allergy/AdvReac Type Severity Reaction Status Date / Time No Known Allergies Allergy Verified 01/21/23 09:19 Exam Data for Last 24 hours Vital signs and Labs for Last 24 Hours: Temp Pulse Resp BP Pulse Ox O2 Del Method 98.2 F 63 18 122/76 96 Room Air 11/15/23 22:36 11/15/23 23:00 11/15/23 23:00 11/15/23 23:00 11/15/23 23:00 11/15/23 23:00 Laboratory Results - last 24 hr 11/15/23 22:47: WBC 9.4, RBC 4.91, Hgb 15.9, Hct 47.4, MCV 96.7 H, MCH 32.5 H, MCHC 33.6, RDW 13.8, Plt Count 229, MPV 8.2, Neut % (Auto) 76.4, Lymph % (Auto) 15.5, [place] % (Auto) 4.6, Eos % (Auto) 2.8, Baso % (Auto) 0.7, Neut # (Auto) 7.2, Lymph # (Auto) 1.5, [place] # (Auto) 0.4, Eos # (Auto) 0.3, Baso # (Auto) 0.1, PT 10.8, INR 0.96, Sodium 141, Potassium 3.9, Chloride 106, Carbon Dioxide 31 H, Anion Gap 7.9, BUN 13, Creatinine 1.20, Estimated Creat Clear 147, Estimated GFR 70, Est GFR ( Amer) 85, Glucose 98, Calcium 9.7, Total Bilirubin 0.7, AST 24, ALT 25, Alkaline Phosphatase 102, Troponin I < 0.01, Total Protein 7.6, Albumin 4.5, Globulin 3.1, Albumin/Globulin Ratio 1.5, TSH 0.60 11/16/23 01:51: Troponin I < 0.01 I & O for Last 24 hours: Intake & Output 11/13/23 11/14/23 11/15/23 11/16/23 23:59 23:59 23:59 23:59 Weight 117.934 kg Constitutional Constitutional: no acute distress *Routine HEENT Exam Head: Present normocephalic Eye: Present EOMI and PERRL ENT: Present mucous membranes moist *Routine Neck Exam Neck: Present supple; Absent lymphadenopathy *Routine Respiratory Exam Respiratory: Present CTA bilaterally *Routine Cardiovascular Exam Cardiovascular: Present RRR *Routine Abdominal Exam Abdominal: Present soft and normoactive bowel sounds; Absent tenderness *Routine Rectal Exam Rectal:: deferred *Routine Genitalia Exam Genitalia:: deferred *Routine Extremities Exam Extremities: Absent cyanosis, clubbing or edema *Routine Skin Exam Skin: Present warm; Absent rash *Routine Neurological Exam Neurological: Present alert and oriented X3 Assessment and Plan *Assessment and plan (1) Syncope: Status: Acute Qualifiers: Encounter type: subsequent encounter Category: Medical Code(s): R55 - Syncope and collapse Plan 33-year-old male presenting with unexplained syncope. Prior cardiovascular evaluation unremarkable thus far, however previously worn Holter monitor results unavailable. Echo does show RV dilation, will consult cardiology for further evaluation Syncope -Cardiology consult -Telemetry -Echo -Potential ILR for unexplained syncope if previous Holter monitor results unremarkable RV dilation -Repeat echo -Potential CMR
--- NOTE | 2023-11-16 02:33 | CA_ITS ---
APPROVED REPORT EXAM: Comprehensive 2D, Doppler, and color-flow Echocardiogram Licensed Real Estate Broker: FLIP Kinsey, RVS Ht: 6 ft 1 in Wt: 260lbs BSA: 2.41 BP: 122/76 mmHg Rhythm: Bradycardia Indications: Bradycardia, Syncope, Smoker,HTN 2D Dimensions Left Atrium 3.52 cm M: 3.0 - 4.0 LA Volume 66.50 mL LA Volume Index [id number] mL/m2 (M/F) 16-34 M-Mode Dimensions RVDd 2.98 cm (0.9-2.6) LA Diam 4.68 cm (1.9-4.0) LVDd 5.51 cm (3.5-5.7) LVDs 3.46 cm (3.5-5.7) IVSd 0.93 cm (0.6-1.1) PWd 0.97 cm (0.6-1.1) EF (Teich) 66.60% EPSs 0.24 cm FS 37.20% EDV (Teich) 148.00 mL TAPSE 2.38 (<1.7) ESV (Teich) 49.50 mL LV Diastology E Decel Time 180 (160-240 msec) E/A Ratio 1.50 MED A' 10.60 cm/s LAT A' 8.90 cm/s Aortic Valve PHI Index 1.16 cm2/m2 AoV Peak Max. 121.0 (50-130 cm/s) AO Peak GR. 5.80 mmHg AO Mean GR. 2.90 (<5 mmHg) AO VTI 27.3 (18-25 cm) PHI (VTI) 2.86 (2.5-4.5 cm2) Mitral Valve MV A Velocity 40.0 (40-130 cm/s) E/A Ratio 1.50 Pulmonary Valve PV Peak Velocity 107.0 (50-150 cm/s) Tricuspid Valve TR P. Velocity 167.00 cm/s RAP Estimate 10.00 mmHg RVSP 21.10 mmHg Left Ventricle The left ventricle is normal size. The left ventricular systolic function is normal. The left ventricular ejection fraction is within the normal range. LVEF is 55%. There is normal left ventricular wall thickness. There is normal LV segmental wall motion. The left ventricular diastolic function is normal. Right Ventricle Right ventricle is mildly to moderately dilated. The right ventricular systolic function is normal. Atria The left atrium size is normal. The right atrium is mildly dilated. There is no Doppler evidence of interatrial shunt. Aortic Valve The aortic valve opens well. There is no aortic valvular stenosis. No aortic regurgitation is present. Mitral Valve The mitral valve is normal in structure. No evidence of mitral valve stenosis. There is no mitral valve regurgitation noted. Tricuspid Valve The tricuspid valve leaflets are thin and pliable. Trace tricuspid regurgitation. There is insufficient TR jet to estimate RVSP. Pulmonic Valve The pulmonary valve is normal in structure. Trace pulmonic regurgitation. Great Vessels The aortic root is normal in size. The ascending aorta is normal in size. IVC is normal in size and collapses >50% with inspiration. Pericardium There is no pericardial effusion. Other Information Study Quality: Fair Conclusion Normal biventricular systolic function. Mild to moderate RV dilation. Mild RA dilation. No significant valvular stenosis or regurgitation. Electronically signed by : Annabella Downs MD 11/17/2023 22:57:51
--- NOTE | 2023-11-16 02:56 | PC.NURSE ---
Rounded on patient, patient is resting in bed voiced no needs at this time.
--- NOTE | 2023-11-16 03:00 | PC.NURSE ---
Patient placed in hospital bed for comfort.
--- NOTE | 2023-11-16 03:46 | PC.NURSE ---
back in patient's room at this time
[2023-11-16 05:25] LABS: Basophils # 0.1 K/mm3 (0-0.2); Basophils % 0.8 % (0.1-2.0); Eosinophils # 0.4 K/mm3 (0.0-0.4); Eosinophils % 4.1 % (0.1-12.0); Hematocrit 43.5 % (42.0-52.0); Hemoglobin 14.7 g/dL (14.1-18.0); Lymphocytes # 2.6 K/mm3 (0.7-4.5); Mean Corpuscular HGB Conc 33.9 g/dL (31.8-35.4); Mean Corpuscular Hemoglobin 32.7 pg (27.0-31.2); Mean Corpuscular Volume 96.6 fl (80-94); Mean Platelet Volume 8.1 fl (7.4-10.4); Monocytes # 0.4 K/mm3 (0.1-1.0); Neutrophils # 5.4 K/mm3 (1.8-7.8); Neutrophils % 61.2 % (37.0-80.0); Platelet Count 196 K/mm3 (142-424); Red Cell Distribution Width 13.8 % (11.5-17.5); White Blood Count 8.8 K/mm3 (4.8-10.8)
[2023-11-16 05:32] LABS: Alanine Aminotransferase 21 U/L (12-78); Albumin Level 3.8 g/dl (3.5-5.0); Albumin/Globulin Ratio 1.4 (1.1-1.8); Alkaline Phosphatase 96 U/L (38-126); Aspartate Amino Transferase 22 U/L (17-59); Bilirubin,Total 0.6 mg/dl (0.2-1.3); Blood Urea Nitrogen 14 mg/dl (9-20); Calcium 9.3 mg/dl (8.4-10.2); Carbon Dioxide 28 mmol/L (22.0-30.0); Chloride 107 mmol/L (98-107); Creatinine Clearance Estimated 197 mL/min (50-200); Estimated Glomerular Filt Rate 98 ml/min (>60); GFR (African American) 118 ML/MIN (>60); Globulin 2.8 g/dL (1.3-3.2); Glucose 97 mg/dl (74-100); Magnesium 2.2 mg/dl (1.6-2.3); Sodium 138 mmol/L (136-145); Total Protein,Serum 6.6 g/dl (6.3-8.2)
[2023-11-16 05:44] LABS: Troponin I < 0.01 ng/ml (0.00-0.034)
--- NOTE | 2023-11-16 06:15 | PC.NURSE ---
Patient resting in bed at this time; no needs voiced.
--- NOTE | 2023-11-16 07:18 | PC.NURSE ---
Echo u/s has been completed. Pt resting in bed, no new concerns at this time
--- NOTE | 2023-11-16 08:45 | PC.NURSE ---
I s/w steward/stewardess club car on med/surg to ask for them to remind Cardiology of the consult in ER for their boarded pt
--- NOTE | 2023-11-16 10:30 | PC.NURSE ---
Cardiology PA at bedside for consult
--- NOTE | 2023-11-16 10:38 | PC.NURSE ---
cardiology in room
--- NOTE | 2023-11-16 11:59 | PC.NURSE ---
Called Med/Surg floor to check on bed status for this pt, WC states she will ask Charge and will call back.
--- NOTE | 2023-11-16 12:07 | PC.NURSE ---
Giving report to Joy LARA on Med/Surg
--- NOTE | 2023-11-16 12:07 | PC.NURSE ---
RECEIVED REPORT FROM KARL LARA
--- NOTE | 2023-11-16 13:18 | P.CONCA_ITS ---
History of Present Illness History of Present Illness Consult date: 11/16/23 Requesting physician: Mable Devi Chief complaint: syncope History of present illness: 33-year-old white male established patient of our office originally seen for evaluation of syncope approximately 6 months ago. At that time he underwent GXT testing which was abnormal so he had follow-up CCTA which was normal. He also had 2D echo which showed mild RV dilation but otherwise normal function. He had 2-week monitor ordered but apparently was not done due to artifact-details of this are unclear. He has not followed up since that visit. Patient presents to ER for second syncopal episode which was witnessed by family who are here today providing assistance with history. Family was watching TV. Patient was sitting in office chair talking about the show and then within seconds his head was tilted back and he was completely unconscious for several minutes. Family held his head up to assist with airway and checked his vitals which were reportedly normal. He had profuse diaphoresis and they called EMS. After approximately 10 minutes he was returned to baseline and has been asymptomatic since that time. He denies prodrome other than feeling weird prior to episodes. There was no witnessed tremor. No loss of bowel or bladder function, no tongue biting or foaming at the mouth. He admits postictal period for hours following both episodes. No medication use and pt denies drugs/alcohol. Typically he can ambulate without palps, CP, or SOA. Tele since arrival has shown some mild sinus bradycardia in the 40s which has been asymptomatic. He has normal serial Troponin. Other labs unremarkable. [facility] Disclaimer: The information contained in this section may have been updated after the patient was seen, as this information can be updated by other users. Medical History Abnormal stress test Hypertension Surgical History History of oral surgery Family History Other Family history of myocardial infarction Social History Smoking Status: Current every day smoker alcohol intake: never current occupational status: employed Travel in the last 8 weeks: None Review of Systems Constitutional Constitutional: Denies fatigue and Denies weakness Eyes Eyes: Denies loss of vision ENT Ears, Nose, Mouth, and Throat: Denies hearing loss and Denies vertigo *Cardiovascular Cardiovascular: Denies chest pain, Denies dyspnea and Reports syncope *Respiratory Respiratory: Denies cough and Denies dyspnea *Gastrointestinal Gastrointestinal: Denies change in stool character, Denies nausea and Denies vomiting *Genitourinary Genitourinary: Denies difficulty urinating *Musculoskeletal Musculoskeletal: Denies muscle weakness Integumentary/Breasts Skin/Breast: Denies changing lesions *Neurologic Neurologic: Denies loss of vision, Reports syncope, Denies vertigo and Denies weakness Endocrine Endocrine: Denies fatigue Exam Data for Last 24 hours Vital signs and Labs for Last 24 Hours: Temp Pulse Resp BP Pulse Ox O2 Del Method 98.2 F 51 L 18 148/75 H 93 L Room Air 11/16/23 12:15 11/16/23 12:15 11/16/23 12:15 11/16/23 12:15 11/16/23 08:00 11/16/23 12:48 Laboratory Results - last 24 hr 11/15/23 22:47: WBC 9.4, RBC 4.91, Hgb 15.9, Hct 47.4, MCV 96.7 H, MCH 32.5 H, MCHC 33.6, RDW 13.8, Plt Count 229, MPV 8.2, Neut % (Auto) 76.4, Lymph % (Auto) 15.5, [place] % (Auto) 4.6, Eos % (Auto) 2.8, Baso % (Auto) 0.7, Neut # (Auto) 7.2, Lymph # (Auto) 1.5, [place] # (Auto) 0.4, Eos # (Auto) 0.3, Baso # (Auto) 0.1, PT 10.8, INR 0.96, Sodium 141, Potassium 3.9, Chloride 106, Carbon Dioxide 31 H, Anion Gap 7.9, BUN 13, Creatinine 1.20, Estimated Creat Clear 147, Estimated GFR 70, Est GFR ( Amer) 85, Glucose 98, Calcium 9.7, Total Bilirubin 0.7, AST 24, ALT 25, Alkaline Phosphatase 102, Troponin I < 0.01, Total Protein 7.6, Albumin 4.5, Globulin 3.1, Albumin/Globulin Ratio 1.5, TSH 0.60 11/16/23 01:51: Troponin I < 0.01 11/16/23 05:20: WBC 8.8, RBC 4.50 L, Hgb 14.7, Hct 43.5, MCV 96.6 H, MCH 32.7 H, MCHC 33.9, RDW 13.8, Plt Count 196, MPV 8.1, Neut % (Auto) 61.2, Lymph % (Auto) 29.0, [place] % (Auto) 5.0, Eos % (Auto) 4.1, Baso % (Auto) 0.8, Neut # (Auto) 5.4, Lymph # (Auto) 2.6, [place] # (Auto) 0.4, Eos # (Auto) 0.4, Baso # (Auto) 0.1, Sodium 138, Potassium 4.0, Chloride 107, Carbon Dioxide 28, Anion Gap 7.0, BUN 14, Creatinine 0.90 D, Estimated Creat Clear 197, Estimated GFR 98, Est GFR ( Amer) 118 D, Glucose 97, Calcium 9.3, Magnesium 2.2, Total Bilirubin 0.6, AST 22, ALT 21, Alkaline Phosphatase 96, Troponin I < 0.01, Total Protein 6.6, Albumin 3.8 D, Globulin 2.8, Albumin/Globulin Ratio 1.4 I & O for Last 24 hours: Intake & Output 11/13/23 11/14/23 11/15/23 11/16/23 23:59 23:59 23:59 23:59 Output Total 0 / 0 Balance 0 / 0 Weight 260 lb 259 lb 15.858 oz Meds Home Medications and Allergies Home Medications Medication Instructions Recorded Confirmed Type No Known Home Medications 11/16/23 11/16/23 History New Prescriptions to Start Prescriptions: Allergies Allergy/AdvReac Type Severity Reaction Status Date / Time No Known Allergies Allergy Verified 11/16/23 12:34 Assessment and Plan *Assessment and plan (1) Syncope: Status: Acute Qualifiers: Encounter type: subsequent encounter Category: Medical Code(s): R55 - Syncope and collapse Plan Recurrent Syncope - 2 episodes, 6 months apart, both were complete loss of consciousness for several minutes and both occurred while at rest and were followed with hours of fatigue - repeat ECHO (prelim) here shows mild-mod RV dilation which is unchanged from last year. - from CV standpoint his EKG, Tele, and ECHO are not concerning at this time. His occasional mild asymptomatic bradycardia here is noted but not an indication for further inpatient w/u or PPM at this time. - Plan: Place 30 day monitor here, check outpatient cardiac MRI, consider implanted loop recorder if 30 day monitor is negative (pt agreeable if needed). Refer to Neuro for sz w/u. NO DRIVING until further notice. 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
--- NOTE | 2023-11-16 15:27 | EXP.DC.SUM ---
General Admission date:: 11/16/23 Discharge date: 11/16/23 HPI HPI HPI: 33-year-old presents to the ER after second episode of syncope in the last 6 months. Was sitting in his chair, passed out for about 2 minutes, completely unresponsive. No bowel or bladder continence loss. Woke up spontaneously with no memory of the event. Prodrome prior to syncope approximately 5 seconds, no palpitations, felt vision narrow then went black. Similar to last episode. Has had prior cardiovascular evaluation syncope including a coronary CTA which was normal. Echo with Normal biventricular systolic function. Moderately dilated RV. No significant valvular disease. Reportedly had a Holter monitor however records are not available in our reporting system. Currently asymptomatic Hospital Course Hospital Course Hospital Course: Patient presented to hospital complaining of syncopal episode. Patient had full neurocardiogenic workup during hospitalization. Patient's TSH within normal limits. CT brain without acute abnormalities. Echocardiogram showing mild to moderate RV dilatation similar to echocardiogram 1 year ago. No new arrhythmias noted on telemetry monitoring during hospitalization. CTA abdomen/pelvis done during hospitalization without acute inflammation. Patient evaluated by cardiology during hospitalization, with 30-day event monitor, sleep study, and neurology consultations ordered at time of hospital discharge. Also discussion note, patient had similar episode approximately 6 months ago. Patient seen by cardiology at that time with full cardiogenic workup done. Patient will follow-up with send cardiology consulted at time of hospital discharge. Exam Data for Last 24 hours Vital signs and Labs for Last 24 Hours: Temp Pulse Resp BP Pulse Ox O2 Del Method 98.2 F 51 L 18 148/75 H 98 Room Air 11/16/23 12:15 11/16/23 12:15 11/16/23 12:15 11/16/23 12:15 11/16/23 12:00 11/16/23 15:00 Laboratory Results - last 24 hr 11/15/23 22:47: WBC 9.4, RBC 4.91, Hgb 15.9, Hct 47.4, MCV 96.7 H, MCH 32.5 H, MCHC 33.6, RDW 13.8, Plt Count 229, MPV 8.2, Neut % (Auto) 76.4, Lymph % (Auto) 15.5, Richardson % (Auto) 4.6, Eos % (Auto) 2.8, Baso % (Auto) 0.7, Neut # (Auto) 7.2, Lymph # (Auto) 1.5, Richardson # (Auto) 0.4, Eos # (Auto) 0.3, Baso # (Auto) 0.1, PT 10.8, INR 0.96, Sodium 141, Potassium 3.9, Chloride 106, Carbon Dioxide 31 H, Anion Gap 7.9, BUN 13, Creatinine 1.20, Estimated Creat Clear 147, Estimated GFR 70, Est GFR ( Amer) 85, Glucose 98, Calcium 9.7, Total Bilirubin 0.7, AST 24, ALT 25, Alkaline Phosphatase 102, Troponin I < 0.01, Total Protein 7.6, Albumin 4.5, Globulin 3.1, Albumin/Globulin Ratio 1.5, TSH 0.60 11/16/23 01:51: Troponin I < 0.01 11/16/23 05:20: WBC 8.8, RBC 4.50 L, Hgb 14.7, Hct 43.5, MCV 96.6 H, MCH 32.7 H, MCHC 33.9, RDW 13.8, Plt Count 196, MPV 8.1, Neut % (Auto) 61.2, Lymph % (Auto) 29.0, Richardson % (Auto) 5.0, Eos % (Auto) 4.1, Baso % (Auto) 0.8, Neut # (Auto) 5.4, Lymph # (Auto) 2.6, Richardson # (Auto) 0.4, Eos # (Auto) 0.4, Baso # (Auto) 0.1, Sodium 138, Potassium 4.0, Chloride 107, Carbon Dioxide 28, Anion Gap 7.0, BUN 14, Creatinine 0.90 D, Estimated Creat Clear 197, Estimated GFR 98, Est GFR ( Amer) 118 D, Glucose 97, Calcium 9.3, Magnesium 2.2, Total Bilirubin 0.6, AST 22, ALT 21, Alkaline Phosphatase 96, Troponin I < 0.01, Total Protein 6.6, Albumin 3.8 D, Globulin 2.8, Albumin/Globulin Ratio 1.4 I & O for Last 24 hours: Intake & Output 11/13/23 11/14/23 11/15/23 11/16/23 23:59 23:59 23:59 23:59 Output Total 0 / 0 Balance 0 / 0 Weight 117.934 kg 117.93 kg Constitutional Constitutional: no acute distress *Routine HEENT Exam Head: Present normocephalic Eye: Present EOMI ENT: Present mucous membranes moist *Routine Neck Exam Neck: Present supple and full ROM Routine Chest/Breast/Axilla Exam Chest wall: Present tenderness *Routine Cardiovascular Exam Cardiovascular: Present RRR and Normal S1 *Routine Abdominal Exam Abdominal: Present soft and normoactive bowel sounds *Routine Extremities Exam Extremities: Present cyanosis Routine Back/Spine/Pelvis Exam Back/Spine: Present full ROM Results Data Completed and Pending Labs on day of discharge: Labs from last 24 hours 11/16/23 11/16/23 11/15/23 05:20 01:51 22:47 WBC 8.8 9.4 RBC 4.50 L 4.91 Hgb 14.7 15.9 Hct 43.5 47.4 MCV 96.6 H 96.7 H MCH 32.7 H 32.5 H MCHC 33.9 33.6 RDW 13.8 13.8 Plt Count 196 229 MPV 8.1 8.2 Neut % (Auto) 61.2 76.4 Lymph % (Auto) 29.0 15.5 Richardson % (Auto) 5.0 4.6 Eos % (Auto) 4.1 2.8 Baso % (Auto) 0.8 0.7 Neut # (Auto) 5.4 7.2 Lymph # (Auto) 2.6 1.5 Richardson # (Auto) 0.4 0.4 Eos # (Auto) 0.4 0.3 Baso # (Auto) 0.1 0.1 PT 10.8 INR 0.96 Sodium 138 141 Potassium 4.0 3.9 Chloride 107 106 Carbon Dioxide 28 31 H Anion Gap 7.0 7.9 BUN 14 13 Creatinine 0.90 D 1.20 Estimated Creat Clear 197 147 Estimated GFR 98 70 Est GFR ( Amer) 118 D 85 Glucose 97 98 Calcium 9.3 9.7 Magnesium 2.2 Total Bilirubin 0.6 0.7 AST 22 24 ALT 21 25 Alkaline Phosphatase 96 102 Troponin I < 0.01 < 0.01 < 0.01 Total Protein 6.6 7.6 Albumin 3.8 D 4.5 Globulin 2.8 3.1 Albumin/Globulin Ratio 1.4 1.5 TSH 0.60 Imaging and Cardiology TESTING: Additional comments: Echocardiogram 11/16/2023: mild-mod RV dilation which is unchanged from last year. per cardiology Ordering Physician: Naseem Quintanilla Date of Service: 11/15/23 Procedure(s): CT head/brain wo con Accession Number(s): [id number] cc: Milad Obrien APRN; Thomas Mann MD; Naseem Quintanilla~ PROCEDURE INFORMATION: Exam: CT Head Without Contrast Exam date and time: 11/15/2023 11:19 PM Age: 33 years old Clinical indication: Syncope and collapse TECHNIQUE: Imaging protocol: Computed tomography of the head without contrast. Radiation optimization: All CT scans at this facility use at least one of these dose optimization techniques: automated exposure control; mA and/or kV adjustment per patient size (includes targeted exams where dose is matched to clinical indication); or iterative reconstruction. COMPARISON: US CA CAROTID DUPLEX BI 12/10/2022 8:30 AM FINDINGS: Brain: Normal. No hemorrhage. Unremarkable white matter. No mass effect. Cerebral ventricles: No ventriculomegaly. Pituitary gland and sella: Negative Paranasal sinuses: Moderate mucosal thickening inferiorly in the bilateral maxillary sinuses. Moderate partial opacification ethmoid air cells. Mild frontal sinus mucosal thickening. Mastoid air cells: Visualized mastoid air cells are well aerated. Orbital cavities: Negative. Parotid and submandibular glands: Negative Bones: Unremarkable. No acute fracture. Soft tissues: Unremarkable. Vasculature: Negative. IMPRESSION: No evidence for intracranial hemorrhage, mass lesions or acute stroke. Ordering Physician: Naseem Quintanilla Date of Service: 11/15/23 Procedure(s): CT abdomen pelvis w con Accession Number(s): [id number] cc: Milad Obrien APRN; Jorge Luis Canada MD; Naseem Quintanilla~ PROCEDURE INFORMATION: Exam: CT Abdomen And Pelvis With Contrast Exam date and time: 11/15/2023 11:25 PM Age: 33 years old Clinical indication: Abdominal pain; Additional info: Syncope and collapse TECHNIQUE: Imaging protocol: Computed tomography of the abdomen and pelvis with contrast. Radiation optimization: All CT scans at this facility use at least one of these dose optimization techniques: automated exposure control; mA and/or kV adjustment per patient size (includes targeted exams where dose is matched to clinical indication); or iterative reconstruction. Contrast material: ISOVUE; Contrast volume: 75 ml; Contrast route: IV; COMPARISON: No relevant prior studies available. FINDINGS: Lungs: There are areas of subpleural reticulation throughout the visualized lungs which are nonspecific. Liver: Normal. Gallbladder and biliary ducts: No acute process. Pancreas: There is fatty replacement of the pancreas. Spleen: Normal. Adrenal glands: The adrenal glands appear normal. Kidneys and ureters: Excreted contrast in the urinary collecting systems from recent CTA studies limits evaluation for small renal calculi. Stomach and bowel: The stomach, small bowel, and colon are well-distended and show no evidence of wall thickening, masses, or obstruction. Appendix: No evidence of appendicitis. Intraperitoneal space: Unremarkable. Vasculature: The abdominal aorta and its major branches appear normal without evidence of aneurysm or stenosis. There are pelvic phleboliths. Lymph nodes: No lymphadenopathy. Urinary bladder: Unremarkable as visualized. Reproductive: No acute process. Bones/joints: The visualized osseous structures of the abdomen and pelvis appear normal for patient age. Soft tissues: There is a small fat containing umbilical hernia. IMPRESSION: No acute inflammatory or obstructive process is identified. Incidental findings are described within the findings section. Ordering Physician: Naseem Quintanilla Date of Service: 11/15/23 Procedure(s): CT angio neck Accession Number(s): [id number] cc: Milad Obrien APRN; Thomas Mann MD; Naseem Quintanilla~ PROCEDURE INFORMATION: Exam: CTA Neck With Contrast Exam date and time: 11/15/2023 11:21 PM Age: 33 years old Clinical indication: Syncope and collapse TECHNIQUE: Imaging protocol: Computed tomographic angiography of the neck with contrast. Exam focused on the cervical segments of the vasculature. 3D rendering (Not supervised by radiologist): MIP and/or 3D reconstructed images were created by the technologist. Radiation optimization: All CT scans at this facility use at least one of these dose optimization techniques: automated exposure control; mA and/or kV adjustment per patient size (includes targeted exams where dose is matched to clinical indication); or iterative reconstruction. Contrast material: ISOVUE; Contrast volume: 100 ml; Contrast route: INTRAVENOUS (IV); COMPARISON: CT ANGIO NECK 11/15/2023 11:21 PM FINDINGS: Right common carotid artery: No stenosis. No dissection or occlusion. Right internal carotid artery: No stenosis of the extracranial segment. No dissection or occlusion. Right external carotid artery: No occlusion or stenosis of the origin. Left common carotid artery: No stenosis. No dissection or occlusion. Left internal carotid artery: No stenosis of the extracranial segment. No dissection or occlusion. Left external carotid artery: No occlusion or stenosis of the origin. Right vertebral artery: No stenosis. No dissection or occlusion. Left vertebral artery: No stenosis. No dissection or occlusion. Soft tissues: Normal. No significant soft tissue swelling. Bones/joints: No acute fracture. IMPRESSION: No stenosis or occlusion. REFERENCES: NASCET CRITERIA. The degree of stenosis in the cervical segment of the internal carotid artery is based on NASCET criteria. Normal is no stenosis. Mild is less than 50% stenosis. Moderate is 50-69% stenosis. Severe is 70% to 99% stenosis. Total occlusion is no detectable patent lumen. Ordering Physician: Naseem Quintanilla Date of Service: 11/15/23 Procedure(s): CT angio head Accession Number(s): [id number] cc: Milad Obrien APRN; Thomas Mann MD; Naseem Quintanilla~ PROCEDURE INFORMATION: Exam: CTA Head With Contrast, Arteriography Exam date and time: 11/15/2023 11:21 PM Age: 33 years old Clinical indication: Syncope and collapse TECHNIQUE: Imaging protocol: Computed tomographic angiography of the head with contrast. Exam focused on the arteries. 3D rendering (Not supervised by radiologist): MIP and/or 3D reconstructed images were created by the technologist. Radiation optimization: All CT scans at this facility use at least one of these dose optimization techniques: automated exposure control; mA and/or kV adjustment per patient size (includes targeted exams where dose is matched to clinical indication); or iterative reconstruction. Contrast material: ISOVUE; Contrast volume: 100 ml; Contrast route: INTRAVENOUS (IV); COMPARISON: CT HEAD/BRAIN WO CON 11/15/2023 11:19 PM FINDINGS: ANTERIOR CIRCULATION: Right internal carotid artery: Intracranial segment is patent with no significant stenosis. No aneurysm. Right middle cerebral artery: No occlusion or significant stenosis. No aneurysm. Right anterior cerebral artery: No occlusion or significant stenosis. No aneurysm. Left internal carotid artery: Intracranial segment is patent with no significant stenosis. No aneurysm. Left middle cerebral artery: No occlusion or significant stenosis. No aneurysm. Left anterior cerebral artery: No occlusion or significant stenosis. No aneurysm. POSTERIOR CIRCULATION: Right vertebral artery: No occlusion or significant stenosis. No aneurysm. Left vertebral artery: No occlusion or significant stenosis. No aneurysm. Basilar artery: No occlusion or significant stenosis. No aneurysm. Right posterior cerebral artery: No occlusion or significant stenosis. No aneurysm. Left posterior cerebral artery: No occlusion or significant stenosis. No aneurysm. Brain: No definite mass, mass effect, or midline shift. Cerebral ventricles: No ventriculomegaly. Bones/joints: Unremarkable. No acute fracture. Soft tissues: Unremarkable. IMPRESSION: No large vessel stenosis or occlusion. DS: Diagnosis Discharge Diagnosis (1) Syncope: Status: Acute Code(s): R55 - Syncope and collapse Qualifiers: Encounter type: subsequent encounter Meds Home Medications and Allergies Home Medications Medication Instructions Recorded Confirmed Type No Known Home Medications 11/16/23 11/16/23 History New Prescriptions to Start Prescriptions: Allergies Allergy/AdvReac Type Severity Reaction Status Date / Time No Known Allergies Allergy Verified 11/16/23 12:34 Discharge Plan Disposition Patient Disposition: Home, Self-Care Condition: Fair Follow up Plan Follow up with: Milad Obrien APRN [Primary Care Provider] - 1 week (Recently hospitalized for recurrent syncope) Marilyn Flores MD [Staff Physician] - 1 month (Management of recurrent syncope) Dannie Devi MD [Staff Physician] - 2 weeks (Management of recurrent syncope) Prescriptions/Medication Reconciliation: No Action No Known Home Medications Problem Reconciliation Problems Reviewed?: Yes Patient Discharge Instructions ACTIVITY: Continue current activity DIET: continue same diet Patient Instructions: DI for Syncope in Adults (Fainting) Print Language: [place] Providers Primary Care Provider: Milad Obrien Admit Provider: Larry Barboza Attending Provider: Larry Barboza
--- NOTE | 2023-11-16 15:59 | PC.NURSE ---
CALLED PT TO LET THEM KNOW TO MAKE AN APPOINTMENT WITH DR PLUMMER IN A MONTH. PT VERBALIZED UNDERSTANDING AND WAS GOOD WITH THAT.
--- NOTE | 2023-11-17 13:27 | CARE MANAGER ---
Called and spoke with patient regarding recent discharge. Patient stated that he is doing well and was aware of scheduled f/u appts. Patient voiced no concerns at time of call.
== END 2023-11-16 15:49 | disposition home or self-care (01) ==
LOC: ER 11-16 01:23 → 2ND 11-16 02:27
PROVIDERS: Internal Medicine; Physician Assistant; Admitting Provider Family Medicine; Emergency Provider Emergency Medicine; PCP Nurse Practitioner Family; Visit Provider Family Medicine
DX: R55 Syncope and collapse (principal); I10 Essential (primary) hypertension; F17.200 Nicotine dependence, unspecified, uncomplicated
CPT/HCPCS: 70450; 70496; 70498; 74177; 80053; 83735; 84443; 84484; 85025; 85610; 93005; 93270; 93306; 99285; G0378; J7120; Q9967

== ENCOUNTER 2023-12-07 09:04 | Outpatient (CLI) | payer BC, SELFPAY ==
--- NOTE | 2023-12-07 09:08 | CA_ITS ---
FINAL REPORT TECHNIQUE: Real-time imaging was performed of the extracranial carotid arteries in transverse and longitudinal planes, with color duplex evaluation of blood flow velocity. Spectral analysis was performed. The cervical vertebral arteries were also examined. CLINICAL HISTORY: SYNCOPE,SMOKER COMPARISON: None FINDINGS: NASCET technique is utilized for stenosis evaluation. Right carotid system (centimeters/second): CCA: 170 ICA: 117 ECA: 164 Vertebral artery: Antegrade ICA/CCA ratio: 0.71 Mild plaque is identified at the bifurcation. Left carotid system (centimeters/second): CCA: 155 ICA: 150 ECA: 133 Vertebral artery: Antegrade ICA/CCA ratio: 0.97 Mild plaque is identified at the bifurcation. IMPRESSION: Less than 50% right ICA stenosis. Less than 50% left ICA stenosis. Antegrade flow bilateral vertebral arteries. Reviewed, Interpreted and Dictated by Guillermo Finley MD Transcribed by Denise Colón Authenticated and . [facility]
== END 2023-12-07 23:59 | disposition home or self-care (01) ==
PROVIDERS: PCP Nurse Practitioner Family; Visit Provider Nurse Practitioner Family
DX: R55 Syncope and collapse (principal)
CPT/HCPCS: 93880

== ENCOUNTER 2023-12-25 18:55 | Emergency (ER) | payer BC, SELFPAY ==
[2023-12-25] VITALS (8 sets, daily range): BP systolic 119–153; BP diastolic 70–94; PULSE 48–73; RESP 10–25; TEMP 36.6–36.8; O2SAT 93–100; BMI 18.6; BMI 31.4
--- NOTE | 2023-12-25 19:01 | ECG_ITS ---
APPROVED REPORT Exam: Resting ECG HR:76 bpm ECG Measurements Heart Rate 76 AXES AL 128 P 59 QRSd 111 QRS 52 QT 358 T 40 QTc 388 Conclusion SINUS RHYTHM POSSIBLE RIGHT VENTRICULAR CONDUCTION DELAY [RSR (QR) IN V1/V2] BORDERLINE ECG Electronically signed by : JOSE ALEJANDRO NDIAYE, 12/26/2023 03:41:18
[2023-12-25 19:07] LABS: Basophils # 0.1 K/mm3 (0-0.2); Basophils % 0.6 % (0.1-2.0); Eosinophils # 0.4 K/mm3 (0.0-0.4); Eosinophils % 4.5 % (0.1-12.0); Hematocrit 50.6 % (42.0-52.0); Hemoglobin 16.5 g/dL (14.1-18.0); Lymphocytes # 2.7 K/mm3 (0.7-4.5); Lymphocytes % 26.9 % (10-50); Mean Corpuscular HGB Conc 32.6 g/dL (31.8-35.4); Mean Corpuscular Hemoglobin 32.1 pg (27.0-31.2); Mean Corpuscular Volume 98.4 fl (80-94); Mean Platelet Volume 7.5 fl (7.4-10.4); Monocytes # 0.5 K/mm3 (0.1-1.0); Monocytes % 5.3 % (1.7-9.3); Neutrophils # 6.2 K/mm3 (1.8-7.8); Neutrophils % 62.8 % (37.0-80.0); Platelet Count 300 K/mm3 (142-424); Red Blood Count 5.14 M/mm3 (4.60-6.20); Red Cell Distribution Width 13.3 % (11.5-17.5); White Blood Count 9.9 K/mm3 (4.8-10.8)
[2023-12-25 19:10] LABS: Albumin Level 4.5 g/dl (3.5-5.0); Chloride 106 mmol/L (98-107); Sodium 141 mmol/L (136-145)
[2023-12-25 19:13] LABS: Alanine Aminotransferase 27 U/L (12-78); Albumin/Globulin Ratio 1.4 (1.1-1.8); Alkaline Phosphatase 113 U/L (38-126); Aspartate Amino Transferase 29 U/L (17-59); Bilirubin,Total 0.5 mg/dl (0.2-1.3); Blood Urea Nitrogen 11 mg/dl (9-20); Calcium 9.2 mg/dl (8.4-10.2); Carbon Dioxide 28 mmol/L (22.0-30.0); Creatinine Clearance Estimated 167 mL/min (50-200); Estimated Glomerular Filt Rate 87 ml/min (>60); GFR (African American) 105 ML/MIN (>60); Globulin 3.2 g/dL (1.3-3.2); Glucose 119 mg/dl (74-100); Total Protein,Serum 7.7 g/dl (6.3-8.2)
[2023-12-25 19:26] LABS: Troponin I < 0.01 ng/ml (0.00-0.034)
--- NOTE | 2023-12-25 19:28 | XR_ITS ---
PROCEDURE INFORMATION: Exam: XR Chest Exam date and time: 12/25/2023 8:01 PM Age: 33 years old Clinical indication: Other: Presyncope TECHNIQUE: Imaging protocol: Radiologic exam of the chest. Views: 2 views. Total images: 2 COMPARISON: CT ABDOMEN PELVIS W CON 11/15/2023 11:25 PM FINDINGS: Lungs: Calcified pulmonary granuloma. Lungs are otherwise clear and well expanded. No airspace consolidation, vascular congestion, or pulmonary edema. Pleural spaces: Unremarkable. No pleural effusion. No pneumothorax. Heart/Mediastinum: Unremarkable. No cardiomegaly. No mediastinal widening or hilar enlargement. Bones/joints: Mild degenerative changes thoracic spine. IMPRESSION: 1. No radiographically acute cardiopulmonary process. 2. Calcified pulmonary granuloma.
[2023-12-25] MEDS: LACTATED RINGERS 1000ML 1,000 ML 999 ML IV (20:05)
--- NOTE | 2023-12-25 20:46 | ED_ITS ---
Discharge Plan Disposition Patient Disposition: Home, Self-Care Condition: Good Prescriptions Prescriptions: No Action No Known Home Medications Referrals Follow up/Referrals: Provider,Referral, MD [Primary Care Provider] - See instructions Clinical Impressions Clinical Impression: Pre-syncope Stand Alone Forms Stand Alone Forms: Work/School Release Instructions Patient Instructions: DI for Syncope in Adults (Fainting) Print Language Print Language: Citizen Of [place] Discharge ED Provider: Todd Modi General Adult HPI General Chief complaint: Syncope Stated complaint: chest pain Time Seen by Provider: 12/25/23 19:14 Mode of Arrival: Ambulatory Source of Information: Patient and Spouse Limitations: No Limitations Description of Symptoms (Recalled from ER Triage Doc. 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 PT STATES HE WAS SITTING IN THE CAR WHEN HE STARTED FEELING WEIRD AND FUZZY. PT REPORTS HE BECAME VERY DIAPHORETIC AND SHAKY. PT REPORTS HE JUST FINISHED WEARING A HALTER MONITOR FOR 30D. PT STATES HE HAS HAD TWO SYNCOPAL EPISODES IN THE LAST YEAR THAT HE IS CURRENTLY BEING WORKED UP FOR BY CARDIOLOGY AND HAS AN APPOINTMENT WITH NEURO IN MARCH. PT LAST ATE THIS AM AND BSFS IS 112. PT STATES HE HAD A MOUNTAIN DEW A FEW MINUTES PRIOR TO THE EVENT. PT DENIES PAIN. PT STATES HE HAS BEEN SLEEP DEPRIVED CLOSE TO ALL OF THE PRE SYNCOPAL/SYNCOPAL EVENTS. History of Present Illness HPI narrative: 33-year-old male presents the ED via private vehicle due to near syncopal event as he reports it. Patient states approximately 20 minutes prior to coming to the ER he was sitting in his car started feeling fuzzy and hot became reportedly diaphoretic and felt like he was get a pass out. Patient has prior history of 2 reported syncopal events in the last year. Reportedly finished wearing a Holter monitor for 30 days recently and has follow-up with cardiology and neurology appointment scheduled. Had Mountain Dew a few minutes prior to the event, has been eating and drinking okay. Denies any pain including chest pain, shortness of breath, abdominal pain. States that he has been somewhat sleep deprived close to all of his prior syncopal and near syncopal events. Denies any symptoms or concerns at this time. Denies loss of consciousness. Related Data Home Medications ?Medication ?Instructions ?Recorded ?Confirmed No Known Home Medications 11/16/23 12/25/23 Allergies Allergy/AdvReac Type Severity Reaction Status Date / Time No Known Allergies Allergy Verified 12/25/23 19:12 [facility] Disclaimer: The information contained in this section may have been updated after the patient was seen, as this information can be updated by other users. Medical History (Updated 12/25/23 @ 21:57 by Todd Modi DO) Sinus bradycardia Family history of ischemic heart disease Dizziness Syncope Rotator cuff syndrome of left shoulder Abnormal stress test Hypertension Surgical History History of oral surgery Family History Other Family history of myocardial infarction Social History Smoking Status: Current every day smoker alcohol intake: never current occupational status: employed Travel in the last 8 weeks: None ROS Obtained: Yes Systems reviewed as appropriate & no additional complaints except as documented Physical Exam General General appearance: alert, in no apparent distress, appears intoxicated and in distress Head Head exam: atraumatic and normocephalic Eye Eye exam: Present normal appearance, PERRL and EOMI ENT ENT exam: Present normal exam Neck Neck exam: Present normal inspection and full ROM Chest Chest inspection: Present normal inspection and symmetric chest wall rise; Absent tenderness Respiratory Respiratory exam: Present normal lung sounds bilaterally; Absent respiratory distress Cardiovascular Cardiovascular exam: Present regular rate, normal rhythm and normal heart sounds Abdominal Exam Abdominal exam: Present soft and normal bowel sounds; Absent distention or tenderness exam: Present deferred Extremities Exam Extremities exam: Present normal inspection and full ROM; Absent tenderness Back Exam Back exam: Present normal inspection Neurological Exam Neurological exam: Present alert, oriented X3, CN II-XII intact and other (Moving all extremities freely, no noted tremor); Absent motor sensory deficit Psychiatric Psychiatric exam: Present normal affect and normal mood Skin Skin exam: Present warm, dry, intact and normal color; Absent rash Medical Decision Making Medical Records Medical records reviewed: Yes I reviewed the patient's medical records. [place] Inquiry Pt receiving controlled substance: No Vital Signs: 12/25/23 19:00 12/25/23 19:01 12/25/23 19:30 Temperature 97.8 F Temperature Source Oral Pulse Rate 69 73 Pulse Rate [Left] 69 Respiratory Rate 10 L 12 25 H Blood Pressure 152/94 H 140/83 Blood Pressure [Right Arm] 153/91 H Blood Pressure Mean [Right Arm] 111 Blood Pressure Source [Right Arm] Automatic Cuff Blood Pressure Position [Right Arm] Sitting 02 Sat by Pulse Oximetry 98 100 93 L Oxygen Delivery Method Room Air 12/25/23 20:00 12/25/23 20:30 12/25/23 21:00 Temperature Temperature Source Pulse Rate 66 61 48 L Pulse Rate [Left] Respiratory Rate 15 20 23 Blood Pressure 123/77 129/78 134/76 Blood Pressure [Right Arm] Blood Pressure Mean [Right Arm] Blood Pressure Source [Right Arm] Blood Pressure Position [Right Arm] 02 Sat by Pulse Oximetry 97 100 97 Oxygen Delivery Method 12/25/23 21:30 12/25/23 21:58 Temperature 98.2 F Temperature Source Oral Pulse Rate 54 L 56 L Pulse Rate [Left] Respiratory Rate 20 19 Blood Pressure 124/70 119/70 Blood Pressure [Right Arm] Blood Pressure Mean [Right Arm] Blood Pressure Source [Right Arm] Blood Pressure Position [Right Arm] 02 Sat by Pulse Oximetry 97 Oxygen Delivery Method Room Air Lab Data Lab Results 12/25/23 18:57: WBC 9.9, RBC 5.14, Hgb 16.5, Hct 50.6, MCV 98.4 H, MCH 32.1 H, MCHC 32.6, RDW 13.3, Plt Count 300, MPV 7.5, Neut % (Auto) 62.8, Lymph % (Auto) 26.9, Kleberg % (Auto) 5.3, Eos % (Auto) 4.5, Baso % (Auto) 0.6, Neut # (Auto) 6.2, Lymph # (Auto) 2.7, Kleberg # (Auto) 0.5, Eos # (Auto) 0.4, Baso # (Auto) 0.1, Sodium 141, Potassium 4.0, Chloride 106, Carbon Dioxide 28, Anion Gap 11.0, BUN 11, Creatinine 1.00, Estimated Creat Clear 167, Estimated GFR 87, Est GFR ( Amer) 105, Glucose 119 H, Calcium 9.2, Total Bilirubin 0.5, AST 29, ALT 27, Alkaline Phosphatase 113, Troponin I < 0.01, Total Protein 7.7, Albumin 4.5, Globulin 3.2, Albumin/Globulin Ratio 1.4 12/25/23 18:57 12/25/23 18:57 Orders (Tests/Meds): ED MEDICATIONS Discontinued Medications Generic Name Dose Route Start Last Admin Trade Name Rob PRN Reason Stop Dose Admin Lactated Ringer's 1,000 mls @ 999 mls/hr 12/25/23 19:28 12/25/23 20:05 Lactated Ringer's 1000 Ml Bag IV 12/25/23 20:28 999 mls/hr .Q1H1M ONE Administration ORDERS Category Date Time Status CXR 2 view (NOT portable) [XR chest 2V] Stat Exams 12/25/23 19:28 Completed Complete Blood Count Auto Diff Stat Lab 12/25/23 18:57 Completed Comprehensive Metabolic Panel Stat Lab 12/25/23 18:57 Completed Troponin I Stat Lab 12/25/23 18:57 Completed ECG Data Tracing #1: I reviewed this ECG and interpreted as documented below: Normal sinus rhythm, normal axis, normal intervals, no noted ST elevation Medical Decision Narrative: Patient with history and exam per above presenting for evaluation of presyncopal event Diagnoses considered include arrhythmia, electrolyte abnormality, infectious process, intracranial abnormality ED workup and treatment included: As above Labs were independently interpreted by me, significant for CBC grossly nonactionable, no noted hypoglycemia, CMP nonactionable, troponin negative Imaging was considered however patient had CT head, CTA head and neck performed November 14 without acute pathologic findings. Given patient's reassuring neurological and physical exam and scheduled follow-up with cardiology and neurology further imaging has been deferred pending reassessment My clinical impression at this time is most consistent with presyncope. At this time patient on reevaluation remains hemodynamically stable states he is feeling better. Medically clear for discharge at this time with outpatient follow-up. Patient given strict instructions to return to ED if symptoms worsen. I discussed my clinical impression with patient and answered all questions. At this time, the evidence for any other entities in the differential is insufficient to warrant any further testing or ED observation. This was explained to the patient. The patient was advised that persistent or worsening symptoms require further evaluation. Critical Care Critical Care Time Critical Care Time: No
== END 2023-12-25 22:08 | disposition home or self-care (01) ==
PROVIDERS: Emergency Provider Student in an Organized Health Care Education/Training Program
DX: R55 Syncope and collapse (principal); F17.210 Nicotine dependence, cigarettes, uncomplicated
CPT/HCPCS: 71046; 80053; 84484; 85025; 93005; 96360; 99284; J7120

== ENCOUNTER 2024-01-19 10:04 | Outpatient (CLI) | payer BC, SELFPAY | END 2024-01-19 23:59 | disposition home or self-care (01) | LOC: RT 10:05 | PROVIDERS: PCP Nurse Practitioner Family; Visit Provider Nurse Practitioner Family | DX: R55 Syncope and collapse (principal) | CPT/HCPCS: 95819 ==

== ENCOUNTER 2024-11-02 07:48 | Outpatient (CLI) | payer BC, SELFPAY ==
--- OUTSIDE RECORDS SUMMARY | 2024-11-02 07:51 | XMS_ITS | Clinical Summary ---
Author Organization [facility] Address [address] [place] [address] Phone Care Team Providers Care Signal Intelligence Analyst Name Role Phone Unavailable Primary Care Provider Unavailabl e Allergies No known active allergies Medications clindamycin (CLEOCIN) 300 mg Oral Capsule Take 300 mg by mouth 3 times daily. Active ibuprofen (ADVIL;MOTRIN) 200 mg Oral Tablet Take 200 mg by mouth every 8 hours as needed for Pain. Active acetaminophen (TYLENOL) 500 mg Oral Tablet Take 500 mg by mouth every 4 hours as needed for Pain. Active HYDROcodone-viry taminophen (NORCO) 5-325 mg Oral Tablet Take 1 tablet by mouth every 6 hours as needed for pain 16 Tablet 08/04/2021 4:37 PM EDT 08/04/2021 Active amoxicillin (AMOXIL) 500 mg Oral Capsule Take 1 capsule by mouth three times a day until gone 21 Capsule 08/04/2021 4:37 PM EDT 08/04/2021 Active ibuprofen (ADVIL;MOTRIN) 600 mg Oral Tablet Take 1 tablet by mouth every 6 hours as needed for pain 30 Tablet 08/04/2021 4:37 PM EDT 08/04/2021 Active Active Problems No known active problems Surgical History Surgery Date Site/Laterality Comments WISDOM TOOTH EXTRACTION TOOTH EXTRACTION 08/04/2021 N/A SURGICAL EXTRACTIONS TEETH, SIMPLE EXTRACTION, ALVEOLOPLASTY; Surgeon: Thomas Pino DMD; Location: [facility]; Service: Maxillofacial Medical History Medical History Date Comments Hypertension no meds Family History Medical History Relation Name Comments High Blood Pressure Father Diabetes Mother Relation Name Status Comments Father Mother Social History Tobacco Use Types Packs/Day Years Used Date Smoking Tobacco: Every Day Cigarettes Smokeless Tobacco: Never Alcohol Use Standard Drinks/Week Comments Not Currently 0 (1 standard drink = 0.6 oz pur e alcohol) Sex and Gender Information Value Date Recorded Sex Assigned at Not on file Legal Sex Male 8:41 AM EST Gender Identity Not on file Sexual Orientation Not on file Obstetrics History Last Filed Vital Signs Vital Sign Reading Time Taken Comments Blood Pressure 159/88 08/04/2021 5:14 PM EDT Pulse 60 08/04/2021 5:14 PM EDT Temperature 36.1 C (96.9 F) 08/04/2021 4:10 PM EDT Respiratory Rate 16 08/04/2021 5:14 PM EDT Oxygen Saturation 99% 08/04/2021 5:14 PM EDT Inhaled Oxygen Concentration - - Weight 117.5 kg (259 lb) 08/04/2021 11:41 AM EDT Height 185.4 cm (6' 1 ) 08/04/2021 11:41 AM EDT Body Mass Index 34.17 08/04/2021 11:41 AM EDT Plan of Treatment Health Maintenance Due Date Last Done Comments Annual Wellness Exam 1994 DTaP/TDaP/Td (1 - Tdap) 2010 Hepatitis B Vaccine (1 of 3 - 19+ 3-dose series) 2010 COVID-19 Vaccine ( - 2023-2 5 season) 2024 Influenza Vaccine (Season Ended) 2025 Meningococcal B Vaccine Aged Out No l onger eligible based on patient's age to complete this topic Pneumococcal Vaccine 0-49 Aged Out No longer eligible based on patient's age to complete this topic Insurance [employer] PPO
--- OUTSIDE RECORDS SUMMARY | 2024-11-02 07:51 | XMS_ITS | Clinical Summary ---
Author Organization [facility] Address [address] [id number] Care Team Providers Care Escalator Operator Name Role Phone Milad Obrien CARLO Primary Care Provider [phone] Social History Tobacco Use Types Packs/Day Years Used Date Smoking Tobacco: Never Assessed Sex and Gender Information Value Date Recorded Sex Assigned at Not on file Legal Sex Male 8:35 PM EDT Gender Identity Not on file Sexual Orientation Not on file Plan of Treatment Health Maintenance Due Date Last Done Comments [facility]-Depression Screening 1991 [facility]-/Child/Adol SDOH Screenings 1991 [facility]-IPV Vaccines (2 of 3 - 4-dose series) 11/02/1995 10/05/1995 [facility]-Varicella Vaccines (1 of 2 - 13+ 2-dose series) 01/16/2004 HPV Vaccines (1 - Male 3-dose series) 2006 [facility]- SDOH Screenings 2009 [facility]-Adult SDOH Screenings 2009 [facility]-DTaP,Tdap,and Td Vaccines (4 - Td or Tdap) 12/13/2016 12/13/2006, 01/13/2006, 10/05/1995 [id number] Vaccine (3 - season) 2024 03/27/2021, 03/06/2021 [facility]-Influenza Vaccine (Season Ended) 2025 [facility]-Zoster Vaccines (1 of 2) 2041 [facility]-Hepatitis B Vaccines Completed 002, 08/16/2001, 07/08/2001 [facility]-HIB Vaccines Aged Out No longer e ligible based on patient's age to complete this topic [facility]-Hepatitis A Vaccines Aged Out No longer eligible based on patient's age to complete this topic [facility]-Pneumococcal Vaccine: Pediatrics (0 to 5 Years) and At-Risk Patients (6 to 49 Years) Aged Out No longer eligible b ased on patient's age to complete this topic [facility]-Rotavirus Vaccines Aged Out No lo nger eligible based on patient's age to complete this topic Insurance [facility] Care Teams Escalator Operator Relationship Specialty Start Date End Date Milad Obrien APRN [address] [place] [address] PCP - General 05/10/22
--- OUTSIDE RECORDS SUMMARY | 2024-11-02 07:51 | XMS_ITS | Data Portability ---
Author Organization [facility] Address [address] [facility] [place] [address] Assessment Encounter Date Assessment Date Assessment LastModified by Organization Details LastModified Time 10/20/2022 10/20/2022 -Medications were reviewed and any necessary updates and renewals were made, patient instructed to complete as prescribed. -The potential side effects of medications were discussed. -Counseling was done on care goals and ways to prevent future hospitalizatio ns. -Further treatment per orders listed below. cbuckler Not available 10/20/2022 10:52:00 11/26/2023 11/26/2023 -Medications were reviewed and any necessary updates and renewals were made, patient instructed to complete as prescribed. -The potential side effects of medications were discussed. -Counseling was done on care goals and ways to prevent future hospitalizatio ns. -Further treatment per orders listed below. cbuckler Not available 11/26/2023 11:08:03 12/28/2023 12/28/2023 -Medications were reviewed and any necessary updates and renewals were made, patient instructed to complete as prescribed. -The potential side effects of medications were discussed. -Counseling was done on care goals and ways to prevent future hospitalizatio ns. -Further treatment per orders listed below. cbuckler Not available 12/28/2023 13:03:51 01/11/2024 01/11/2024 -Medications were reviewed and any necessary updates and renewals were made, patient instructed to complete as prescribed. -The potential side effects of medications were discussed. -Counseling was done on care goals and ways to prevent future hospitalizatio ns. -Further treatment per orders listed below. [email or web address] Not available 01/11/2024 18:12:00 Plan of Treatment Reminders Order Date Submit Date Provider Last Modified By Organization Details Last Modified Time Details Appointments None recorded. Lab HbA1c (hemoglobin A1c), blood 2022 023 [facility], [address], [place], [address], 3 11:53:53 Referral neurologist referral 2023 024 [email or web address] Flores MD, [address], [place], [address], 5 16:30:56 cardiologis t referral 2022 023 SRAVAN Devi MD, [address], [place], [address], 3 14:18:11 Procedures electroence phalogram (EEG); including recording awake and drowsy (PROC) 2023 024 [facility] Scheduling, [address], [place], [address], 4 09:19:47 Surgeries None recorded. Imaging US, duplex, carotid artery 2023 024 [facility] (Scheduling), [address], [place], [address], 4 11:50:46 Medication Orders None recorded. Patient TargetsNo targets recorded. Patient Instructions Encounter Date Encounter Id Patient Instructions Last Modified By Organization Details Last Modified Time 10/20/2022 [id number] learning about healthy weight efryman Not available 10/20/2022 11:23:06 body mass index: care instructions efryman Not available 10/20/2022 11:23:06 10/30/2022 [id number] glucose sensor download and interpretation* cbuckler Not available 11/06/2022 15:33:47 Reason for Referral It Application Architect Referral for Sy ncope Referring Physician: [facility], Encounter Date: 10/20/2022 Neurologist Referral for Syn cope Referring Physician: [facility], Encounter Date: 11/26/2023 Results Created Date Observation Date Name Description Value Unit Range Abnormal Flag Note LastModifiedBy Organization Detail LastModifiedTime 10/21/19 23 10/20/2022 HbA1c (hemo globi n A1c), blood HbA1C 5.2 % Not Available [address], [address], 10/20/2022 11:21:58 12/11/19 23 12/10/2022 CT, angio gram, carot id arter ies, w/ contr ast No observ ation record ed. [address], [place], [address], 12/10/2022 11:43:35 12/12/19 23 12/10/2022 stres s echoc ardio gram (PROC ) No observ ation record ed. [address], [place], [address], 12/15/2022 09:32:56 12/14/19 23 12/10/2022 cardi ac stres s test No observ ation record ed. [address], [place], [address], 12/15/2022 09:29:14 11/16/19 24 11/15/2023 CT, head + brain , w/o contr ast No observ ation record ed. [address], [place], [address], 11/19/2023 09:13:51 11/16/19 24 11/15/2023 CT, angio gram, neck, w/ contr ast No observ ation record ed. [address], [place], [address], 11/19/2023 09:13:50 11/16/19 24 11/15/2023 CT, angio gram, head, w/ contr ast No observ ation record ed. [place] [id number], [place], [address], 11/19/2023 09:13:49 11/16/19 24 11/15/2023 CT, abdom en + pelvi s, w/ contr ast No observ ation record ed. [place] [id number], [place], [address], 11/19/2023 09:13:48 11/17/19 24 11/15/2023 elect ancelmo diogr am No observ ation record ed. [id number], [place], [address], 11/19/2023 09:06:50 11/17/19 24 11/16/2023 US, doppl er echoc ardio gram No observ ation record ed. [place] [id number], [place], [address], 11/19/2023 09:13:46 12/07/19 24 12/07/2023 US, duple x, carot id arter y No observ [facility]ion [facility] [address], [place], [address], 12/09/2023 15:34:22 02/04/20 24 01/19/2024 elect maria luisa gallegosl ogram (EEG) ; inclu ding recor ding awake and drows y (PROC ) No observ ation record ed. [facility] (Med Record) [address], [place], [address], 02/11/2024 13:35:17 Result Notes None recorded. Problems No Known Problems Procedures Surgical History Date Name Laterality Status Provider Name and Address Organization Details Recorded Time 12/28/19 24 Medication Reconcilliation completed Chantelle Arvizu [place] - [facility] 12/28/2023 13:03:51 11/26/19 24 Medication Reconcilliation completed Chantelle HOUGH - [facility] 11/26/2023 11:08:03 10/21/19 23 Dexcom Placement completed Tommyshira Obrien, CUSTOMER ACCOUNT MANAGER [address], [place], [address], [place] - [facility] 10/20/2022 13:25:16 10/21/19 23 Medication Reconcilliation completed Chantelle HOUGH - [facility] 10/20/2022 10:52:00 dental surgery completed Chantellerojelio HOUGH - [facility] 04/16/2022 11:13:36 Imaging Results None recorded. Procedure Notes None recorded. Medical Equipment None Reported. Allergies No known drug allergies Medications Name Sig Start Date Stop Date Status Note LastModified by Organization Details LastModified Time amoxicill in 500 mg capsule take 1 capsule (500 mg) by oral route every 12 hours for 10 days 04/16 completed Not Available Not Available Not Available Augmentin 875 mg-125 mg tablet take 1 tablet by oral route 2 times a day for 10 days 10/24 completed Augmenti n 875-125 mg oral tablet;R ecorded Status: Recorded on: 09/02/19 14 1:44PM;D iscontin ued Status: Disconti nued on: 10/25/19 14 5:56PM;U ser: grayn;Es t. Completi on: 09/12/19 14;Print ed: 09/02/19 14 Not Available Not Available Not Available clindamyc in HCl 300 mg capsule TAKE 1 CAPSULE BY MOUTH 4 TIMES DAILY FOR 7 DAYS 04/16 completed Not Available Not Available Not Available hydrocodo ne 5 mg-acetam inophen 325 mg tablet 04/16 completed Not Available Not Available Not Available prednison e 20 mg tablet take 1 tablet (20 mg) by oral route 2 times per day for 5 days 10/20 completed Not Available Not Available Not Available Zyrtec 10 mg tablet take 1 tablet (10 mg) by oral route once daily 10/24 completed Zyrtec 10 mg oral tablet;R ecorded Status: Recorded on: 09/02/19 14 1:44PM;D iscontin ued Status: Disconti nued on: 10/25/19 14 5:56PM;U ser: grayn;Es t. Completi on: 12/31/19 14;Indic ation: Allergic Rhinitis - (4779 00);Prin fermín: 09/02/19 14 Not Available Not Available Not Available Sudogest 30 mg tablet Take 1 tablet every 4 hours by oral route. 04/16 completed Not Available Not Available Not Available Nasonex 50 mcg/actua tion [place] spray 2 sprays in each nostril by intranas al route once daily - 2 samples 06/19 completed Nasonex 50 mcg/actu ation nasal spray,no n-aeroso l;Record ed Status: Recorded on: 10/25/19 14 7:03PM;D iscontin ued Status: Disconti nued on: 06/19/19 15 3:49PM;U ser: guttmann ;Est. Completi on: 10/27/19 14;Indic ation: Atopic Rhinitis - (4779 03) Not Available Not Available Not Available ibuprofen 600 mg tablet 04/16 completed Not Available Not Available Not Available Vitals Date Recorded Body weight Body temperature Heart rate Oxygen saturation Oxygen saturation in Arterial blood by Pulse oximetry Respiratory rate Systolic blood pressure Diastolic blood pressure Provider Name and Address Organization Details Last Updated DateTime 3 751484. 12 g 97.8 [degF] 74 /min 98 % 98 % 18 /min 142 mm[Hg] 78 mm[Hg] Chantelle HOUGH - [facility] 3 10:52:38 Date Recorded Body weight Body temperature Heart rate Oxygen saturation Oxygen saturation in Arterial blood by Pulse oximetry Respiratory rate Systolic blood pressure Diastolic blood pressure Provider Name and Address Organization Details Last Updated DateTime 3 762000. 28 g 97.1 [degF] 62 /min 98 % 98 % 18 /min 144 mm[Hg] 82 mm[Hg] Chantelle HOUGH - [facility] 3 08:20:37 Date Recorded Body weight Heart rate Oxygen saturation Oxygen saturation in Arterial blood by Pulse oximetry Respiratory rate Systolic blood pressure Diastolic blood pressure Provider Name and Address Organization Details Last Updated DateTime 4 099998. 13 g 71 /min 98 % 98 % 20 /min 122 mm[Hg] 84 mm[Hg] Chantelle Arvizu [place] - [facility] 4 11:15:15 Date Recorded Body weight Body temperature Heart rate Oxygen saturation Oxygen saturation in Arterial blood by Pulse oximetry Respiratory rate Systolic blood pressure Diastolic blood pressure Provider Name and Address Organization Details Last Updated DateTime 4 894608. 65 g 98.2 [degF] 73 /min 98 % 98 % 18 /min 130 mm[Hg] 82 mm[Hg] Chantelle Daleyler [facility] 4 13:13:58 Date Recorded Body height Respiratory rate Body mass index (BMI) Body weight Heart rate Oxygen saturation Oxygen saturation in Arterial blood by Pulse oximetry Body temperature Systolic blood pressure Diastolic blood pressure Provider Name and Address Organization Details Last Updated DateTime 4 187.96 cm 18 /min 32.2 kg/m2 743878. 68 g 64 /min 97 % 97 % 97.8 [degF] 140 mm[Hg] 88 mm[Hg] Monica Marienimesh [place] - [facility] 4 18:36:04 Social History Question Answer Notes LastModified by Organizat ion Details LastModified Time Tobacco Smoking Status Current Every Day Smoker [facility] [place] [facility] 12/28/2023 13:14:31 Able To Swim? Yes Information not available 12/02/2016 Are You Blind Or Do You Have Difficulty Seeing? No Information not available 12/02/2016 What Is Your Level Of Caffeine Consumption? Moderate Information not available 12/02/2016 Are You Deaf Or Do You Have Serious Difficulty Hearing? No Information not available 12/02/2016 What Type Of Diet Are You Following? REGULAR Information not available 12/02/2016 Which Illicit Or Recreational Drugs Have You Used? None Information not available 12/02/2016 Swimming/diving Yes Informati on not available 12/02/2016 When Did You Quit Smoking? 1-5yearssinc elastcigaret te Information not available 04/16/2022 Hard Of Hearing Or Deaf In One Or Both Ears? Yes Information not available 12/02/2016 Legally Blind In One Or Both Eyes? No Information not available 12/02/2016 Live Alone Or With Others? With Others Information not available 12/02/2016 What Was The Date Of Your Most Recent Tobacco Screening? 12/28/2023 Information not available 12/28/2023 How Many Children Do You Have? 2 Information not available 12/02/2016 What Is Your Relationship Status? Domestic Partner Girlfriend Information not available 12/02/2016 Seat Belts Used Routinely Yes Information not available 12/02/2016 Are You Sexually Active? Yes Information not available 12/02/2016 Smoke Alarm In Home Yes Information not available 12/02/2016 Are You Passively Exposed To Smoke? Yes Information not available 12/02/2016 How Much Tobacco Do You Smoke? No Information not available 12/02/2016 General Stress Level Medium Information not available 12/02/2016 Has Tobacco Cessation Counseling Been Provided? Yes Information not available 12/28/2023 On What Date Was Tobacco Cessation Counseling Provided? 12/28/2023 Information not available 12/28/2023 How Many Years Have You Smoked Tobacco? 5 Information not available 12/02/2016 Do You Have Difficulty Walking Or Climbing Stairs? No Information not available 12/02/2016 Sex: Male Functional Status Question Answer Note LastModified by Organizat ion Details LastModified Time Do you use any illicit or recreational drugs? No Information not available 04/16/2022 What is your level of alcohol consumption? Occasional Information not available 12/02/2016 Are you currently employed? Yes Information not available 12/02/2016 Are you able to walk? YESWOREST Information not available 12/02/2016 Do you have difficulty doing errands alone? No Information not available 12/02/2016 Are you able to care for yourself? Yes Information n ot available 12/02/2016 What is your occupation? [employer] Information not available 12/02/2016 Do you have difficulty dressing or bathing? No Information not available 12/02/2016 What is your exercise level? Occasional Information not available 12/02/2016 Mental Status Question Answer Note LastModified by Organization D etails LastModified Time Do you have difficulty concentrating, remembering or making decisions? No Information no t available 12/02/2016 Family History Relationship Description Onset Age of this Age Resolved Age Notes LastModified by Organization Details LastModified Time Father Hypertensive disorder Not available 2016 13:10:21 Father Diverticulit is Not available 2016 13:10:45 Mother Hypertensive disorder Not available 2016 13:10:21 Mother Diabetes mellitus Not available 2016 13:10:28 Mother Diverticulit is Not available 2016 13:10:45 Unspecified Relation Hypertensive disorder patern al great grandf ather/ all of father s side and matern al grandm other Not available 12/02/2016 13:11:33 Maternal Grandmother Hypercholest erolemia Not available 2016 13:11:41 Medical History Condition Response Pancreatitis N Coronary Artery Disease N Other N Gout N Atrial Fibrillation N congenital heart disease N Kidney Stones N Blood Diseases N Hyperthyroidism N Rheumatoid arthritis N Blood Transfusion N Erectile Dysfunction N amputation N Colonoscopy N Skin Lesions N Depression N COPD N Pneumonia N Incontinence N Murmur N Edema N Alzheimer's Disease N Migraine Headaches N Tobacco Abuse Y Anxiety Disorder N Muscle, Joint, or Bone Problems N Hemorrhoids N Obesity N Vision or Eye Problems N Restless Leg Syndrome N Arthritis N Polyps N Infertility N Mental Disorder N Carpal Tunnel N Acid Reflux (GERD) N Cancer N Varicosities N Stroke N Tendonitis N Crohn's Disease N Hypercholesterolemia N Skin Cancer N Headaches N Fibromyalgia N Irritable Bowel Syndrome N Anal Fissure N Kidney Disease N Heart Problems N Ear or Hearing Problems N Hospitalizations N Gallstones N Kidney or Bladder Problems N Goiter N Acne N Skin Problems N Eating Disorder N Apple's Esophagus N Hypertriglyceridemia N MRSA exposure N Constipation N Embolism N Vitamin B12 Deficiency N Deviated Septum N Tuberculosis N AIDS/HIV N Myocardial Infarction N Asthma N Mitral Valve Disorders N Vertigo N Hepatitis N Thyroid Cancer N Neuropathy N Pulmonary Embolism N History of DVT N Herniated Disc N Chronic Ear Infections N Chicken Pox N Autism Spectrum Disorder (ASD) N Von Willebrands Disease N Thrombophilias N Breast Cancer N Hernia N Plantar Fasciitis N Hospital Admission Other Than N Lung Disease N Hypothyroidism N Defects or Inherited Disease N Developmental or Behavioral Disorders N Breast Problem N Difficulty Swallowing N Ovarian Cyst N Anesthesia Complications N Testosterone Deficiency N Meniere's disease N Head Injury/Concussion N Interstitial Cystitis N Congenital Anomalies N Hypoglycemia N Blood clot N Vitamin D Deficiency N Cellulitis N Endometriosis N Bladder or Kidney Problems N Fracture N Liver Disease N Schizophrenia N Panic Disorder N Concussion N Spina Bifida N Allergies/Hayfever N Osteoarthritis N Parkinson's Disease N Disc Protrusion N STI N Esophagitis N Angina N Thyroid Problems N GI Problems N ADD/ADHD N Anemia N Multiple Sclerosis N Abnormal PAP N Lumbago N Mental Illness N Psychiatric Illness N Ovarian Cancer N Diabetes N Bedwetting N Degenerative Disc Disease N Seizures/Epilepsy N Congestive Heart Failure (CHF) N Syncope N Hyperlipidemia N Insomnia N Eczema N Abuse/Domestic Violence N Attention Deficient Disorder N Dementia N Diverticulitis N Ulcerative colitis N Cerebrovascular Disease N Depression N Guillain-[place] N Sleep Apnea N Aneurysm N Bronchitis N Heart Disease N Suicidal Ideation N Pre-Eclampsia N Hypertension N Osteoporosis N Immunizations Vaccine Type Date Status Note Provider Nam e and Address Organization Details Recorded Time Hep B, adolescent or pediatric 2 completed Chantelle Arvizu [place] - [facility] 04/16/2022 11:12:08 Hep B, adolescent or pediatric 2 completed Chantelle Arvizu [place] [facility] 04/16/2022 11:12:08 COVID-19, mRNA, LNP-S, PF, 30 mcg/0.3 mL dose 1 completed Chantelle Arvizu [place] - [facility] 04/16/2022 11:12:08 DTP 6 completed Chantelle Arvizu [place] [facility] 04/16/2022 11:12:08 Tdap 6 completed Chantelle Arvizu [place] [facility] 04/16/2022 11:12:08 meningococcal MCV4, unspecified formulation 7 completed Chantelle velazco, [place] - [facility] 04/16/2022 11:12:08 COVID-19, mRNA, LNP-S, PF, 30 mcg/0.3 mL dose 1 completed Chantelle Nolbertoindira velazco, [place] - [facility] 04/16/2022 11:12:08 MMR 6 completed Chantellerojelio Arvizu null, [place] - [facility] 04/16/2022 11:12:08 Tdap 7 completed Chantelle Nolberto null, [place] - [facility] 04/16/2022 11:12:08 OPV 6 completed Chantelle Nolberto null, [place] - [facility] 04/16/2022 11:12:08 Hep B, adolescent or pediatric 2 completed Chantelle Arvizu null, [place] - [facility] 04/16/2022 11:12:08 Past Encounters Encounter ID Performer Location Encounter Start Date Encounter Closed Date Diagnosis/Indication Diagnosis SNOMED-CT Code Diagnosis ICD10 Code Diagnosis Note [id number] Ioana Melgar APRN [address] [place] [address] 12/02/2016 13:01:14 12/02/2016 13:34:39 Body mass index 30+ - obesity 139726008 Z68.39 Upper resp iratory infection 21220706 J06.9 Viral syndrome 795163124 B34.9 [id number] Milad Obrien APRN [address] [address] 01/20/2022 15:52:41 01/20/2022 17:00:29 Upper respiratory infection 22096971 J06.9 no sign of a bacterial infection. likely viral. viruses can take 7-14 days to run their course. nasal saline and bulb syringe to remove nasal drainage to help with congestion . monitor temp. Tylenol or Motrin as needed for pain or fever. encourage fluids, water, Gatorade, power aide, Pedialyte if infant/tod dler/child warm salt water gargles warm fluids sore throat lozenges sleep elevated humidifier /vaporizer follow up immediatel y for new or worsening symptoms or no noticeable improvemen t over the next 48-72 hoursretur n in 2 days for re test if no improvemen t [id number] Milad Obrien APRN [address] [address] 01/22/2022 15:20:52 01/22/2022 15:56:18 Exposure to SARS-CoV-2 994528176 Z20.822 no sign of a bacterial infection. likely viral. viruses can take 7-14 days to run their course. nasal saline and bulb syringe to remove nasal drainage to help with congestion . monitor temp. Tylenol or Motrin as needed for pain or fever. encourage fluids, water, Gatorade, power aide, Pedialyte if infant/tod dler/child warm salt water gargles warm fluids sore throat lozenges sleep elevated humidifier /vaporizer follow up immediatel y for new or worsening symptoms or no noticeable improvemen t over the next 48-72 hours [id number] Milad Obrien APRN [address] [address] 04/16/2022 10:50:17 04/16/2022 11:50:19 Pain of left shoulder joint 7302294991 3904818 M25.877 [id number] Milad Obrien APRN [address] [address] 10/20/2022 10:34:18 10/20/2022 11:33:33 Body mass index 30+ - obesity 838388070 Z68.31 Obesity 787431563 E66.9 Syncope 525912097 R55 dexcom pro placedhas heart monitor in placeasked to log any symptoms while wearing dexcom Hypoglycemia 936935302 E 16.2 [id number] Milad Obrien APRN [address] [address] 10/30/2022 08:01:02 10/30/2022 09:20:18 Syncope 064223752 R55 follow up with cardiologi st as scheduled if any symptoms go to ed or return elie dexcom pro readings- AGPin range 100%averag e glucose 100GMI 5.7%co efficient of variation 13.6time cgm active 99.5%see report scanned in [id number] Eugonda Fryman, [address] [address] 11/26/2023 10:58:18 11/26/2023 12:01:30 Syncope 188638038 R55 follow up with cardiologi st as scheduled if any symptoms go to ed or return elie [id number] Milad Obrien [address] [address] 12/28/2023 12:50:31 12/28/2023 13:52:48 Syncope [id number] R55 follow up with cardiologi st as scheduled if any symptoms go to ed or return asapeeg to r/o seizure activityfo llow up with neuro/card iologyany symptoms go to ed for eval [id number] Milad Obrien [address] [address] 01/11/2024 18:16:00 01/11/2024 18:53:01 Syncope [id number] R55 follow up with cardiologi st as scheduled if any symptoms go to ed or return asapfollow up with neuro/card iologyany symptoms go to ed for eval Health Concerns Section Related Observation LastModified by Organization Detai ls LastModified Time None Recorded Concern Status LastModified by Organization Details LastModified Time None Recorded Advance Directives Directive None Recorded Payers Insurance Date Sequence Insurance Name Policy Number Policy Busby Covered Member ID Busby Member ID Guarantor Name 01/17/2024 1 [employer] [id number] Hipolito Maldonado [id number] Hipolito Maldonado 01/20/2022 1 [employer] [place] (MEDICAID HMO) Hipolito Maldonado [id number] Hipolito Maldonado 01/12/2024 [place] [employer]MEDICAID) Hipolito Maldonado [id number] Hipolito Maldonado Notes Date Note Type Note Provider Name and Address Organization Details Recorded Time 10/20/2022 text/html 32 yr old male presents to follow up on er visit. He passed out at home on Wednesday with low bp and diaphoresis.pt states he was playing a game when he felt dizzy,tired and shaky. pt states the next thing he knew his was standing over him calling his name. she states he had his eyes rolled back and was making a snoring sound.pt states when he woke up he felt fine but tired and was sweaty. went to ed for eval. pt states the last time this happened he had not eaten and once he ate he felt fine. pt states this time he did go longer than normal between eating. Milad Obrien APRN [address], [place], [address], [facility] - [facility] 10/20/2022 13:25:30 10/30/2022 text/html 32 yr old male presents to followup on dexcom readings. pt states no events since last visit. Milad Obrien APRN [address], [place], [address], [facility] - [facility] 10/30/2022 09:13:08 11/26/2023 text/html Emergency Depart ment Follow-Up RecordReported bypatient.Discharge InformationName of hospital/urgent care patient was seen: ([facility]); Patient presented to hospital/urgent care on or around: actual date ; Patient presented to hospital for treatment of: (syncope? Seizure?); Treatment received by hospital/urgent care: (blood work,head and abdominal CT); Patient's condition has: improved; Hospital records available at the time of this visit: No 33 yr old male presents after hospital stay for a passing out or seizure spell. He was sitting in his chair at home and turned to talk to someone and when he turned back his head went back and eyes rolled back. Currently wearing a 30 day heart monitor from cardiology. He needs a referral to neurology. pt states similar episode happened last year Milad Obrien APRN [address], [place], [address], [facility] - [facility] 11/26/2023 13:16:43 12/28/2023 text/html Emergency Depart ment Follow-Up RecordReported bypatient.Discharge InformationName of hospital/urgent care patient was seen: ([facility]); Patient presented to hospital/urgent care on or around: actual date 12/25/23; Patient presented to hospital for treatment of: (dizziness); Treatment received by hospital/urgent care: (Cardiac work up); Patient's condition has: improved; Hospital records available at the time of this visit: No 33 yr old male presents for an ER follow up. He had another episode of dizziness, and fatigue but did not pass out completely on 12/25/23 and went to the ER at [facility]. He was worked up for cardiac issues and all tests were negative. He is inquiring about intermittent FMLA. pt states when these episodes come on he feels his body can not move, becomes dizzy, tired and tremors Milad Obrien APRN [address], [place], [address], [place] - [facility] 12/28/2023 14:50:02 01/11/2024 text/html 33 year old male who presents to the office today for a follow up onsyncope/seizure like activity that he was seen in er for and has followed up with neurology and cardiology. no new episodesneeds fmla forms filled out Milad Obrien APRN [address], [place], [address], [place] [facility] 01/13/2024 11:42:45
--- NOTE | 2024-11-02 08:30 | MR_ITS ---
FINAL REPORT TECHNIQUE: Multiplanar MR, without and with gadolinium enhancement CLINICAL HISTORY: Syncope, random episodes of passing out COMPARISON: None FINDINGS: Diffusion sequences show no signal abnormality to indicate acute infarct. No mass, hemorrhage or edema is seen. Ventricles are normal. Major vascular flow voids are intact. Following contrast administration, no mass or abnormal enhancement is seen. Note is made of pansinusitis, most pronounced in the ethmoid air cells. IMPRESSION: 1. Pansinusitis, most pronounced in the ethmoid air cells. 2. Otherwise, unremarkable MR evaluation the brain with contrast Reviewed, Interpreted and Dictated by Fracisco Thomas MD Transcribed by Denise Colón Authenticated and [facility]
[2024-11-02] MEDS: SODIUM CHLORIDE 0.9% 10ML SYR (RAD ONLY) 10 ML IV (08:50)
[2024-11-02] MEDS: GADOTERIDOL INJ 10ML SYRINGE 5 ML IV (08:50)
[2024-11-02] MEDS: GADOTERIDOL INJ 20ML SYRINGE 20 ML IV (08:50)
== END 2024-11-02 23:59 | disposition home or self-care (01) ==
LOC: RAD 07:49
PROVIDERS: PCP Nurse Practitioner Family; Visit Provider Specialist
DX: J32.4 Chronic pansinusitis (principal); I10 Essential (primary) hypertension
CPT/HCPCS: 70553; A9576

== ENCOUNTER 2024-11-20 07:22 | Outpatient (CLI) | payer BC, SELFPAY ==
--- OUTSIDE RECORDS SUMMARY | 2024-11-20 07:24 | XMS_ITS | Clinical Summary ---
Author Organization [facility] Address [address] [id number] Care Team Providers Care Sleeve Baster Name Role Phone Milad Obrien CARLO Primary Care Provider [phone]- [phone] Social History Tobacco Use Types Packs/Day Years [...] Td or Tdap) 12/13/2016 12/13/2006, 01/13/2006, 10/05/1995 [id number] Vaccine (3 - season) 2024 03/27/2021, 03/06/2021 UKY-Influenza Vaccine (#1) 2025 UKY-Zoster Vaccines (1 of 2) 2041 [...] patient's age to complete this topic Insurance [facility] Care Teams Sleeve Baster Relationship Specialty Start Date End Date Milad Obrien APRN [address] [place] [address] PCP - General 05/10/22
--- OUTSIDE RECORDS SUMMARY | 2024-11-20 07:24 | XMS_ITS | Clinical Summary ---
Author Organization [facility] Address [address] [facility] [place] [address] Phone Care Team Providers Care Systems Admin Name Role Phone Unavailable Primary Care Provider [...] - 2023-2 5 season) 2024 Influenza Vaccine (#1) 2025 Meningococcal B Vaccine Aged Out No l onger eligible based on patient's age to complete this topic Pneumococcal Vaccine 0-49 Aged Out No longer eligible based on patient's age to complete this topic Insurance [employer] PPO
--- OUTSIDE RECORDS SUMMARY | 2024-11-20 07:25 | XMS_ITS | Data Portability ---
Author Organization [facility] Address [address] [place] [address] Assessment Encounter Date Assessment Date Assessment LastModified [...] Lab HbA1c (hemoglobin A1c), blood 2022 023 [facility], [address] [facility], [place], [address], 3 11:53:53 Referral neurologist referral 2023 024 [email or web address] Flores MD, [address], [place], [address], 5 16:30:56 cardiologis t referral 2022 023 SRAVAN Devi MD, [address], [place], [address], 3 14:18:11 Procedures electroence phalogram (EEG); including recording awake and drowsy (PROC) 2023 024 [facility] Scheduling, [address], [place], [address], 4 09:19:47 Surgeries None recorded. Imaging US, duplex, carotid artery 2023 024 [facility] (Scheduling), [address], [place], [address], 4 11:50:46 Medication Orders None recorded. Patient TargetsNo targets recorded. Patient Instructions Encounter Date Encounter Id Patient Instructions Last Modified By Organization Details Last Modified Time 10/20/2022 [id number] learning about healthy weight efryman Not available 10/20/2022 11:23:06 body mass index: care instructions efryman Not available 10/20/2022 11:23:06 10/30/2022 [id number] glucose sensor download and interpretation* cbuckler Not available 11/06/2022 15:33:47 Reason for Referral Retail Customer Service Specialist Referral for Sy ncope Referring Physician: [facility], Encounter Date: 10/20/2022 Neurologist Referral for Syn cope Referring Physician: Milad [facility], Encounter Date: 11/26/2023 Results Created Date Observation Date Name Description Value Unit Range Abnormal Flag Note LastModifiedBy Organization Detail LastModifiedTime 10/21/19 23 10/20/2022 HbA1c (hemo globi n A1c), blood HbA1C 5.2 % Not Available [address], [address], 10/20/2022 11:21:58 12/11/19 23 12/10/2022 CT, angio gram, carot id arter ies, w/ contr ast No observ ation record ed. [address], [place], [address], 12/10/2022 11:43:35 12/12/19 23 12/10/2022 stres s echoc ardio gram (PROC ) No observ ation record ed. [address], [place], [address], 12/15/2022 09:32:56 12/14/19 23 12/10/2022 cardi ac stres s test No observ ation record ed. [address], [place], [address], 12/15/2022 09:29:14 11/16/19 24 11/15/2023 CT, head + brain , w/o contr ast No observ ation record ed. [address], [place], [address], 11/19/2023 09:13:51 11/16/19 24 11/15/2023 CT, angio gram, neck, w/ contr ast No observ ation record ed. [address], [place], [address], 11/19/2023 09:13:50 11/16/19 24 11/15/2023 CT, angio gram, head, w/ contr ast No observ ation record ed. [facility] [address], [place], [address], 11/19/2023 09:13:49 11/16/19 24 11/15/2023 CT, abdom en + pelvi s, w/ contr ast No observ ation record ed. [facility] [address], [place], [address], 11/19/2023 09:13:48 11/17/19 24 11/15/2023 elect ancelmo diogr am No observ ation record ed. [id number], [place], [address], 11/19/2023 09:06:50 11/17/19 24 11/16/2023 US, doppl er echoc ardio gram No observ ation record ed. [facility] [address], [place], [address], 11/19/2023 09:13:46 12/07/19 24 12/07/2023 US, duple x, carot id arter y No observ ation [facility] ed. [facility] [address], [place], [address], 12/09/2023 15:34:22 02/04/20 24 01/19/2024 elect roenc ephal ogram (EEG) ; inclu ding recor ding awake and drows y (PROC ) No observ ation record ed. [facility] [address], [place], [address], 02/11/2024 13:35:17 0611/02/2024 MRI, head, w/wo contr ast No observ ation record ed. [email or web address] [address], [place], [address], 11/02/2024 11:53:20 Result Notes None recorded. Problems No Known Problems Procedures Surgical History Date Name Laterality Status Provider Name and Address Organization Details Recorded Time 12/28/19 24 Medication Reconcilliation completed Chantelle Arvizu [place] - [facility] 12/28/2023 13:03:51 11/26/19 24 Medication Reconcilliation completed Chantelle Arvizu [place] - [facility] 11/26/2023 11:08:03 10/21/19 23 Dexcom Placement completed Milad Obrien APRN [address], [place], [address], [place] [facility] 10/20/2022 13:25:16 10/21/19 23 Medication Reconcilliation completed Chantelle Arvizu [place] - [facility] 10/20/2022 10:52:00 dental surgery completed Chantelle H[place] - [facility] 04/16/2022 11:13:36 Imaging Results [...] 12/31/19 14;Indic ation: Allergic Rhinitis - (4779 );Prin fermín: 09/02/19 14 Not Available Not Available Not Available Sudogest 30 mg tablet Take 1 tablet every 4 hours by oral route. 04/16 completed Not Available Not Available Not Available Nasonex 50 mcg/actua tion Lanexa spray 2 sprays in each nostril by intranas al route once daily - 2 samples 06/19 completed Nasonex 50 mcg/actu ation nasal spray,no n-aeroso l;Record ed Status: Recorded on: 10/25/19 14 7:03PM;D iscontin ued Status: Disconti nued on: 06/19/19 15 3:49PM;U ser: guttmann ;Est. Completi on: 10/27/19 14;Indic ation: Atopic Rhinitis - (4779 ) Not Available Not Available Not Available ibuprofen 600 mg tablet 04/16 completed Not Available Not Available Not Available Vitals Date Recorded Body weight Body temperature Heart rate Oxygen saturation Oxygen saturation in Arterial blood by Pulse oximetry Respiratory rate Systolic And Diastolic Provider Name and Address Organization Details Last Updated DateTime 3 138574. 12 g 97.8 [degF] 74 /min 98 % 98 % 18 /min 142/78 mm[Hg] Chantelle Arvizu [place] - [facility] 3 10:52:38 Date Recorded Body weight Body temperature Heart rate Oxygen saturation Oxygen saturation in Arterial blood by Pulse oximetry Respiratory rate Systolic And Diastolic Provider Name and Address Organization Details Last Updated DateTime 3 149971. 28 g 97.1 [degF] 62 /min 98 % 98 % 18 /min 144/82 mm[Hg] Chantelle Arvizu [place] - [facility] 3 08:20:37 Date Recorded Body weight Heart rate Oxygen saturation Oxygen saturation in Arterial blood by Pulse oximetry Respiratory rate Systolic And Diastolic Provider Name and Address Organization Details Last Updated DateTime 4 309847. 13 g 71 /min 98 % 98 % 20 /min 122/84 mm[Hg] Chantelle Nolberto [place] - [facility] 4 11:15:15 Date Recorded Body weight Body temperature Heart rate Oxygen saturation Oxygen saturation in Arterial blood by Pulse oximetry Respiratory rate Systolic And Diastolic Provider Name and Address Organization Details Last Updated DateTime 4 892704. 65 g 98.2 [degF] 73 /min 98 % 98 % 18 /min 130/82 mm[Hg] Chantelle Nolberto [place] - [facility] 4 13:13:58 Date Recorded Body height Respiratory rate Body mass index (BMI) Body weight Heart rate Oxygen saturation Oxygen saturation in Arterial blood by Pulse oximetry Body temperature Systolic And Diastolic Provider Name and Address Organization Details Last Updated DateTime 4 187.96 cm 18 /min 32.2 kg/m2 008536. 68 g 64 /min 97 % 97 % 97.8 [degF] 140/88 mm[Hg] Monica Marienimesh [place] - [facility] 4 18:36:04 Social History Question Answer Notes LastModified by Organizat ion Details LastModified Time Tobacco Smoking Status Current Every Day Smoker Chantelle Nolberto velazco [facility] 12/28/2023 13:14:31 Able To Swim? 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 Information not available 12/02/2016 Do you have [...] Response Pancreatitis N Coronary Artery Disease N Gout N Other N Atrial Fibrillation N congenital heart disease N Blood Diseases N Kidney Stones N Hyperthyroidism N Rheumatoid arthritis N Blood Transfusion N Erectile Dysfunction N amputation N Colonoscopy N Skin Lesions N COPD N Depression N Pneumonia N Incontinence N Murmur N [...] Than N Lung Disease N Hypothyroidism N Developmental or Behavioral Disorders N Defects or Inherited Disease N Breast Problem N Difficulty Swallowing N Ovarian Cyst N Anesthesia Complications N Testosterone Deficiency N Meniere's disease N Head Injury/Concussion N Interstitial Cystitis N Congenital Anomalies N Hypoglycemia N Blood clot N Vitamin D Deficiency N Cellulitis N Endometriosis N Fracture N Bladder or Kidney Problems N Liver Disease N Schizophrenia N Panic [...] Congestive Heart Failure (CHF) N Syncope N Insomnia N Hyperlipidemia N Eczema N Diverticulitis N Dementia N Attention Deficient Disorder N Abuse/Domestic Violence N Ulcerative colitis N Cerebrovascular Disease N Depression N Guillain-[place] N Sleep Apnea N Aneurysm N Heart Disease N Bronchitis N Suicidal Ideation N Pre-Eclampsia N Hypertension N Osteoporosis N Immunizations Vaccine Type Date Status Note Provider Nam e and Address Organization Details Recorded Time Hep B, adolescent or pediatric 2 completed Chantelle velazco, [place] - [facility] 04/16/2022 11:12:08 Hep B, adolescent or pediatric 2 completed Chantelle Arvizu [place], [place] - [facility] 04/16/2022 11:12:08 COVID-19, mRNA, LNP-S, PF, 30 mcg/0.3 mL dose 1 completed Chantelle velazco [place] - [facility] 04/16/2022 11:12:08 DTP 6 completed Chantelle Arvizu [place], [place] - [facility] 04/16/2022 11:12:08 Tdap 6 completed Chantelle velazco [place] - [facility] 04/16/2022 11:12:08 meningococcal MCV4, unspecified formulation 7 completed Chantelle Nolberto null, [place] - [facility] 04/16/2022 11:12:08 COVID-19, mRNA, LNP-S, PF, 30 mcg/0.3 mL dose 1 completed Chantelle Arvizu null, [place] - [facility] 04/16/2022 11:12:08 MMR 6 completed Chantellerojelio Arvizu null, [place] - [facility] 04/16/2022 11:12:08 Tdap 7 completed Chantelle Arvizu null, [place] - [facility] 04/16/2022 11:12:08 OPV 6 completed Chantellerojelio Arivzu null, [place] - [facility] 04/16/2022 11:12:08 Hep B, adolescent or pediatric 2 completed Chantelle Arvizu null, [place] - [facility] 04/16/2022 11:12:08 Past Encounters Encounter ID Performer Location Encounter Start Date Encounter Closed Date Diagnosis/Indication Diagnosis SNOMED-CT Code Diagnosis ICD10 Code Diagnosis Note [id number] Ioana Melgar APRN [address] [place] [address] 12/02/2016 13:01:14 12/02/2016 13:34:39 Body mass index 30+ - obesity 137002924 Z68.39 Upper resp iratory infection 45333243 J06.9 Viral syndrome 073627950 B34.9 [id number] Milad Obrien APRN [facility] [address] [place] [address] 01/20/2022 15:52:41 01/20/2022 17:00:29 Upper respiratory infection 25843191 J06.9 no sign of a bacterial infection. likely viral. viruses can take 7-14 days to run their course. nasal saline and bulb syringe to remove nasal drainage to help with congestion . monitor temp. Tylenol or Motrin as needed for pain or fever. encourage fluids, water, Gatorade, power aide, Pedialyte if /tod dler/child warm salt water gargles warm fluids sore throat lozenges sleep elevated humidifier /vaporizer follow up immediatel y for new or worsening symptoms or no noticeable improvemen t over the next 48-72 hoursretur n in 2 days for re test if no improvemen t [id number] Milad Obrien [address] [address] 01/22/2022 15:20:52 01/22/2022 15:56:18 Exposure to SARS-CoV-2 640751168 Z20.822 no sign of a bacterial infection. likely viral. viruses can take 7-14 days to run their course. nasal saline and bulb syringe to remove nasal drainage to help with congestion . monitor temp. Tylenol or Motrin as needed for pain or fever. encourage fluids, water, Gatorade, power aide, Pedialyte if /tod dler/child warm salt water gargles warm fluids sore throat lozenges sleep elevated humidifier /vaporizer follow up immediatel y for new or worsening symptoms or no noticeable improvemen t over the next 48-72 hours [id number] Milad Obrien [address] [id number] 04/16/2022 10:50:17 04/16/2022 11:50:19 Pain of left shoulder joint 4065153287 2210749 M25.560 [id number] Milad Obrien [address] [address] 10/20/2022 10:34:18 10/20/2022 11:33:33 Body mass index 30+ - obesity 999994449 Z68.31 Obesity 859535376 E66.9 Syncope 863292258 R55 dexcom pro placedhas heart monitor in placeasked to log any symptoms while wearing dexcom Hypoglycemia 153411030 E 16.2 [id number] [facility] [address] [address] 10/30/2022 08:01:02 10/30/2022 09:20:18 Syncope 965782327 R55 follow up with cardiologi st as scheduled if any symptoms go to ed or return elie dexcom pro readings- AGPin range 100%averag e glucose 100GMI 5.7%co efficient of variation 13.6time cgm active 99.5%see report scanned in [id number] Milad Obrien [address] [address] 11/26/2023 10:58:18 11/26/2023 12:01:30 Syncope [id number] R55 follow up with cardiologi st as scheduled if any symptoms go to ed or return elie [id number] Milad Obrien [employer] [address] [address] 12/28/2023 12:50:31 12/28/2023 13:52:48 Syncope [id number] R55 follow up with cardiologi st as scheduled if any symptoms go to ed or return asapeeg to r/o seizure activityfo llow up with neuro/card iologyany symptoms go to ed for eval [id number] [facility] Obrien [address] [address] 01/11/2024 18:16:00 01/11/2024 18:53:01 Syncope [id number] R55 follow up with cardiologi st as [...] Busby Member ID Guarantor Name 01/17/2024 1 [place] [id number] Hipolito Maldonado [id number] Hipolito Maldonado 01/20/2022 1 [employer] [place] (MEDICAID HMO) Hipolito Maldonado [id number] Hipolito Maldonado 01/12/2024 [place] [employer] [place] Hipolito Maldonado [id number] Hipolito Maldonado Notes Date Note Type Note [...] go longer than normal between eating. Milad Obrien, [facility] [address], [place], [address], [place] [facility] 10/20/2022 13:25:30 10/30/2022 text/html 32 yr old male presents to followup on dexcom readings. pt states no events since last visit. Milad Obrien [facility] [address], [place], [address], [place] - [facility] 10/30/2022 09:13:08 11/26/2023 text/html Emergency Depart ment Follow-Up RecordReported bypatient.Discharge InformationName of hospital/urgent care patient was seen: ([facility]); Patient presented to hospital/urgent care on [...] states similar episode happened last year Milad Obrien, [facility] [address], [place], [address], [place] - [facility] 11/26/2023 13:16:43 12/28/2023 text/html Emergency Depart ment Follow-Up RecordReported bypatient.Discharge InformationName of hospital/urgent care patient was seen: ([facility]); Patient presented to hospital/urgent care on or [...] 12/25/23 and went to the ER at [facility]. He was worked up for cardiac issues and all tests were negative. He is inquiring about intermittent FMLA. pt states when these episodes come on he feels his body can not move, becomes dizzy, tired and tremors Milad Obrien APRN [address], [place], [address], [place] - [facility] 12/28/2023 14:50:02 01/11/2024 text/html 33 year old male who presents to the office today for a follow up onsyncope/seizure like activity that he was seen in er for and has followed up with neurology and cardiology. no new episodesneeds fmla forms filled out Milad Obrien APRN [address], [place], [address], [place] [facility] 01/13/2024 11:42:45
[2024-11-20 09:20] LABS: Vitamin B12 240 pg/mL (239-931)
== END 2024-11-20 23:59 | disposition home or self-care (01) ==
LOC: LAB 07:22
PROVIDERS: PCP Nurse Practitioner Family; Visit Provider Specialist
DX: R53.83 Other fatigue (principal)
CPT/HCPCS: 36415; 82607